=== PATIENT | female | born 1990 | race Two or more races ===

== ENCOUNTER 2017-12-14 21:36 | Emergency (ER) | payer BC ==
[2017-12-14] MEDS ORDERED: Metoclopramide 10 MG/2 ML SDV IVPUSH ONE (22:43)
[2017-12-14] MEDS ORDERED: HYDROmorphone 1 MG/ML Syringe IVPUSH ONE (22:43)
[2017-12-14] MEDS ORDERED: Sodium Chloride 0.9% 1,000 ML IV SCH (22:45)
--- NOTE | 2017-12-14 22:46 | EDM.PDOC ---
ED HPI GENERAL MEDICAL PROBLEM - General Chief Complaint: Abdominal Pain Stated Complaint: ABDOMINAL PAIN Time Seen by Provider: 12/14/17 22:37 Source of Information: Reports: Patient History Limitations: Reports: No Limitations - History of Present Illness INITIAL COMMENTS - FREE TEXT/NARRATIVE: 27-year-old female presents to the ED with acute onset of upper abdominal pain. She feels it mostly epigastrium then shoots across both sides were upper abdomen. Reports this is an intermittent chronic problem for her for many months. It was worse during recent 12 week . Patient took misoprostol to complete miscarriage as she had incomplete products of conception. She had a 8 week gestation fetus on ultrasound without any heartbeat. She took the misoprostol on Friday, December 10 and miscarried the following morning. This did produce significant abdominal cramping pain and diarrhea. Patient does have some dyspepsia by history. Does not take medication for reflux or heartburn. H this gas pain seems to start almost every evening. Usually her supper meals and her largest of the day. She rarely drinks alcohol. Pain is constant with mild colicky component. She's aware of in her upper back but not near as bad as the anterior upper abdomen. She does feel bloated. No previous abdominal surgeries. She reports that her bleeding per vagina is mild at this time with very little cramping pain in the lower abdomen. Onset: Today Onset Date: 12/14/17 Onset Time: 21:00 Duration: Chronic, Intermittent, Waxing/Waning Location: Reports: Abdomen Quality: Reports: Ache (Diffuse pain upper abdomen starting in the epigastrium and rating across both sides of the upper abdomen.), Other Severity: Moderate (Ladarius pressure discomfort with a colicky component) Improves with: Reports: None (No position helps it's perhaps worse with lying down.) Worsens with: Reports: Other Context: Denies: Activity, Exercise (Supine position), Lifting, Sick Contact, Trauma, Other Associated Symptoms: Denies: Confusion, Chest Pain, Cough, cough w sputum, Diaphoresis, Fever/Chills, Loss of Appetite, Malaise, Nausea/Vomiting Treatments ASSISTED LIVING DIRECTOR: Reports: Other (see below) (Gas-X.) Upper Abdominal Pain Score (Numeric/FACES): 10 - Related Data Allergies Allergy/AdvReac Type Severity Reaction Status Date / Time No Known Allergies Allergy Verified 12/14/17 21:48 Home Meds: Home Meds . [No Known Home Meds] 12/14/17 [History] Past Medical History SNUBBER History: Reports: , Spontaneous : 1 Para: 0 (Miscarried 4 days ago. Incomplete miscarriage and required misoprostol to facilitate miscarriage on January 10. Found to be 8 weeks gestation with no heart tones on January 08.) LMP (Approximate): > 3 Months Musculoskeletal History: Reports: Fracture, Other (See Below) Other Musculoskeletal History: ankle surgery Social & Family History - Tobacco Use Smoking Status *Q: Never Smoker - Caffeine Use Caffeine Use: Reports: None - Recreational Drug Use Recreational Drug Use: No - Living Situation & Occupation Living situation: Reports: Occupation: Employed ED ROS GENERAL - Review of Systems Review Of Systems: See Below Constitutional: Denies: Fever, Chills HEENT: Reports: No Symptoms Respiratory: Reports: No Symptoms Cardiovascular: Reports: No Symptoms Endocrine: Reports: Fatigue GI/Abdominal: Reports: Abdominal Pain, Decreased Appetite (See history present illness). Denies: Difficulty Swallowing, Distension, Flatus, Hematemesis, Hematochezia, Melena : Reports: Other (Currently mild bleeding per vagina. Miscarrying with the aid of misoprostol on January 09 with miscarriage the following morning January 10) Skin: Reports: No Symptoms Neurological: Reports: No Symptoms Psychiatric: Reports: No Symptoms Hematologic/Lymphatic: Reports: No Symptoms Immunologic: Reports: No Symptoms ED EXAM, GI/ABD - Physical Exam Exam: See Below Exam Limited By: No Limitations General Appearance: Alert, WD/WN, Moderate Distress Eyes: Bilateral: Normal Appearance (No jaundice.) Throat/Mouth: Normal Inspection, Normal Lips, Normal Teeth, Normal Oropharynx Head: Atraumatic, Normocephalic Neck: Normal Inspection, Supple, Full Range of Motion. No: Lymphadenopathy (L) , Lymphadenopathy (R) Respiratory/Chest: No Respiratory Distress, Lungs Clear, Normal Breath Sounds, No Accessory Muscle Use Cardiovascular: Normal Peripheral Pulses, Regular Rate, Rhythm, No Edema, No Gallop, No Murmur GI/Abdominal Exam: Normal Bowel Sounds, Soft, Tender, Other (Negative Shore sign.). No: Guarding, Rigid (Tenderness mostly in the epigastrium with no rebound or guarding), Rebound Back Exam: Normal Inspection, Full Range of Motion. No: CVA Tenderness (L), CVA Tenderness (R) Extremities: Normal Inspection, Normal Range of Motion, Non-Tender, No Pedal Edema Neurological: Alert, Oriented, CN II-XII Intact, Normal Cognition, Normal Gait Psychiatric: Normal Affect, Normal Mood Skin Exam: Warm, Dry, Intact, Normal Color, No Rash Course - Vital Signs Last Recorded V/S: Last Vital Signs Temp 36.4 C 12/14/17 21:45 Pulse 74 12/14/17 21:45 Resp 18 12/14/17 21:45 BP 138/84 12/14/17 21:45 Pulse Ox 100 12/14/17 21:45 - Orders/Labs/Meds Orders: Active Orders 24 hr Category Date Time Status Abdomen 1V Flat [CR] Stat Exams 12/14/17 22:44 Taken Magnesium Citrate [Citrate of Magnesia] Med 12/15/17 00:25 Once 296 ml PO ONETIME ONE Sodium Chloride 0.9% [Normal Saline] 1,000 ml Med 12/14/17 22:45 Active IV ASDIRECTED Medication Orders Sodium Chloride (Normal Saline) 1,000 mls @ 150 mls/hr IV ASDIRECTED DAVY Last Admin: 12/14/17 22:58 Dose: 150 mls/hr Labs: Laboratory Tests 12/14/17 12/14/17 12/14/17 Range/Units 22:50 22:50 22:50 WBC (3.98-10.04) K/mm3 RBC (3.98-5.22) M/mm3 Hgb (11.2-15.7) gm/L Hct (34.1-44.9) % MCV (79.4-94.8) fl MCH (25.6-32.2) pg MCHC (32.2-35.5) g/dl RDW Std Deviation (36.4-46.3) fL Plt Count (182-369) K/mm3 MPV (9.4-12.3) fl Neutrophils % (Manual) (40-60) % Band Neutrophils % (0-10) % Lymphocytes % (Manual) (20-40) % Atypical Lymphs % % Monocytes % (Manual) (2-10) % Eosinophils % (Manual) (0.7-5.8) % Basophils % (Manual) (0.1-1.2) Platelet Estimate RBC Morph Comment Sodium 138 (136-145) mEq/L Potassium 3.7 (3.5-5.1) mEq/L Chloride 102 (98-107) mEq/L Carbon Dioxide 26 (21-32) mEq/L Anion Gap 13.7 (5-15) BUN 11 (7-18) mg/dL Creatinine 0.8 (0.55-1.02) mg/dL Est Cr Clr Drug Dosing 90.41 mL/min Estimated GFR (MDRD) > 60 (>60) mL/min BUN/Creatinine Ratio 13.8 L (14-18) Glucose 106 (74-106) mg/dL Calcium 9.4 (8.5-10.1) mg/dL Total Bilirubin 0.2 (0.2-1.0) mg/dL AST 25 (15-37) U/L ALT 28 (14-59) U/L Alkaline Phosphatase 81 (46-116) U/L C-Reactive Protein 0.5 (<1.0) mg/dL Total Protein 8.3 H (6.4-8.2) g/dl Albumin 4.0 (3.4-5.0) g/dl Globulin 4.3 gm/dL Albumin/Globulin Ratio 0.9 L (1-2) Amylase 54 (25-115) U/L Urine Color Yellow (Yellow) Urine Appearance Slt cloudy H (Clear) Urine pH 7.0 (5.0-8.0) Ur Specific [place] > or = 1.030 (1.005-1.030) Urine Protein Negative (Negative) Urine Glucose (UA) Negative (Negative) Urine Ketones Negative (Negative) Urine Occult Blood 3+ H (Negative) Urine Nitrite Negative (Negative) Urine Bilirubin Negative (Negative) Urine Urobilinogen 0.2 (0.2-1.0) Ur Leukocyte Esterase Trace H (Negative) Urine RBC 40-50 H (0-5) /hpf Urine WBC 0-5 (0-5) /hpf Ur Epithelial Cells 0-5 (0-5) /hpf Urine Bacteria Few (FEW) /hpf Urine Mucus Few (FEW) /hpf H. pylori IgG Antibody Negative (NEGATIVE) 12/14/17 Range/Units 23:05 WBC 11.86 H (3.98-10.04) K/mm3 RBC 4.00 (3.98-5.22) M/mm3 Hgb 12.0 (11.2-15.7) gm/L Hct 35.1 (34.1-44.9) % MCV 87.8 (79.4-94.8) fl MCH 30.0 (25.6-32.2) pg MCHC 34.2 (32.2-35.5) g/dl RDW Std Deviation 38.5 (36.4-46.3) fL Plt Count 313 (182-369) K/mm3 MPV 9.9 (9.4-12.3) fl Neutrophils % (Manual) 65 H (40-60) % Band Neutrophils % 0 (0-10) % Lymphocytes % (Manual) 25 (20-40) % Atypical Lymphs % 0 % Monocytes % (Manual) 9 (2-10) % Eosinophils % (Manual) 1 (0.7-5.8) % Basophils % (Manual) 0 L (0.1-1.2) Platelet Estimate Adequate RBC Morph Comment Normal Sodium (136-145) mEq/L Potassium (3.5-5.1) mEq/L Chloride (98-107) mEq/L Carbon Dioxide (21-32) mEq/L Anion Gap (5-15) BUN (7-18) mg/dL Creatinine (0.55-1.02) mg/dL Est Cr Clr Drug Dosing mL/min Estimated GFR (MDRD) (>60) mL/min BUN/Creatinine Ratio (14-18) Glucose (74-106) mg/dL Calcium (8.5-10.1) mg/dL Total Bilirubin (0.2-1.0) mg/dL AST (15-37) U/L ALT (14-59) U/L Alkaline Phosphatase (46-116) U/L C-Reactive Protein (<1.0) mg/dL Total Protein (6.4-8.2) g/dl Albumin (3.4-5.0) g/dl Globulin gm/dL Albumin/Globulin Ratio (1-2) Amylase (25-115) U/L Urine Color (Yellow) Urine Appearance (Clear) Urine pH (5.0-8.0) Ur Specific [place] (1.005-1.030) Urine Protein (Negative) Urine Glucose (UA) (Negative) Urine Ketones (Negative) Urine Occult Blood (Negative) Urine Nitrite (Negative) Urine Bilirubin (Negative) Urine Urobilinogen (0.2-1.0) Ur Leukocyte Esterase (Negative) Urine RBC (0-5) /hpf Urine WBC (0-5) /hpf Ur Epithelial Cells (0-5) /hpf Urine Bacteria (FEW) /hpf Urine Mucus (FEW) /hpf H. pylori IgG Antibody (NEGATIVE) Meds: Medications Generic Name Dose Route Start Last Admin Trade Name Freq PRN Reason Stop Dose Admin Sodium Chloride 1,000 mls @ 150 mls/hr 12/14/17 22:45 12/14/17 22:58 Normal Saline IV 150 mls/hr ASDIRECTED DAVY Administration Discontinued Medications Generic Name Dose Route Start Last Admin Trade Name Freq PRN Reason Stop Dose Admin Dicyclomine HCl 20 mg 12/15/17 00:24 Bentyl PO 12/15/17 00:25 ONETIME ONE Hydromorphone HCl 1 mg 12/14/17 22:43 12/14/17 22:59 Dilaudid IVPUSH 12/14/17 22:44 1 mg ONETIME ONE Administration Hydromorphone HCl 1 mg 12/15/17 00:25 Dilaudid IVPUSH 12/15/17 00:26 ONETIME ONE Metoclopramide HCl 7.5 mg 12/14/17 22:43 12/14/17 22:58 Reglan IVPUSH 12/14/17 22:44 7.5 mg ONETIME ONE Administration - Radiology Interpretation Free Text/Narrative:: 27-year-old female presents to the ED with diffuse upper abdominal pain since 2100 hrs. tonight. She reports this is a chronic condition that occurs most often the evenings. She feels like she is bloated up with excessive gas. Pain tonight is the worst it's been. Associated nausea without vomiting. Pain into her back. Pain in the epigastrium that radiates across both upper sides of the abdomen. He does feel bloated and distended. On exam she is diffusely tympanitic to percussion and is clinically distended. Bowel sounds are fairly active but not overly so. Benign abdomen on palpation. Most of the tenderness appears to be in the epigastrium. Negative Shore sign. Most likely thing is constipation of the transverse colon. Plan IV normal saline 150 mils per hour. Given Dilaudid 1 mg IV and Reglan 7.5 mg IV for pain relief and nausea relief. Labs including amylase and Helicobacter pylori to be done. KUB of the abdomen to be done. - Re-Assessments/Exams Free Text/Narrative Re-Assessment/Exam: 12/15/17 00:17 KUB reveals increased stool throughout the lower right hemicolon almost to the hepatic flexure. Large amount of air distending the transverse colon. Labs are back. Labs are back revealing a mildly elevated white count of 11.86 with 65% neutrophils and no band cells reported. Hemoglobin is 12.0 with hematocrit of 35.1. White count is normal 313,000. Chemistry is normal. Glucose is 106. Calcium is 9.4. Liver function is normal. Total protein is mildly elevated at 8.3 with a albumin fraction of 4.0. Urinalysis shows 3+ occult blood with 40-50 RBCs per high-power field. Trace leukocyte esterase. H. pylori was negative. 12/15/17 00:26 pain was better but the cramps return to come back. Patient advised of the findings of the labs and x-ray. Plan will be to use magnesium citrate 8 ounces by mouth with 5-6 ounces of juice of choice orally later this morning when she wakes up to get her bowels working. Will repeat Dilaudid 1 mg IV and give her Bentyl 20 mg by mouth at this time to relieve abdominal cramping pain. I'm going to suggest that she takes MiraLAX powder 17 g or 1 scoop daily for the next 3 weeks with a probiotic such as 4*to prevent similar events as this is been a chronic problem for her. Departure - Departure Time of Disposition: 00:27 Disposition: Home, Self-Care 01 Condition: Fair Clinical Impression: Constipation by delayed colonic transit Abdominal pain Qualifiers: Abdominal location: periumbilical Qualified Code(s): R10.33 - Periumbilical pain - Discharge Information *PRESCRIPTION DRUG MONITORING PROGRAM REVIEWED*: No *COPY OF PRESCRIPTION DRUG MONITORING REPORT IN PATIENT RAMYA: No Instructions: Constipation, Adult Referrals: PCP,None [Primary Care Provider] - Forms: ED Department Discharge Additional Instructions: Evaluation in the emergency room tonight in regards to development of severe upper abdominal cramping pain. This is been a recurrent problem for you and therefore you underwent significant investigations with lab tests. No signs of H. pylori infection to cause gastritis or peptic ulcer disease. No evidence of liver or gallbladder related illness. Pancreas is also normal. The x-ray of the abdomen revealed constipation involving the right lower hemicolon. It's means there is a stool plug in the bottom of your right colon where the small bowel attaches. This is unusual in terms that stool is usually not formed up in the right colon but only on the left side. It does form up on the left side it creates a stool plug which will create intermittent severe cramping pain when you eat particularly. It is magnesium citrate later this morning. Take 8 ounces with 5-6 ounces of juice of choice or Gatorade Powerade or a mixed with it. Takes 1-2 hours to work and will usually make her bowels work for 3 or 4 times often ending with some diarrhea. Should relieve your abdominal pain. I would suggest taking MiraLAX powder 17 g or 1 scoop daily for the next 3 weeks to help regulate her bowels and also a probiotic such as Florstar once or twice daily to try and help prevent constipation issues as well. You're treated with intravenous medication Dilaudid 1 mg IV 2 while in the ED for relief of abdominal pain. Also Reglan 7.5 mg for nausea relief. You're also given Bentyl 20 mg by mouth to help relieve cramping abdominal pain overnight. Follow-up with personal care physician if similar problems continue. - My Orders Last 24 Hours: My Active Orders 12/14/17 22:44 Abdomen 1V Flat [CR] Stat 12/14/17 22:45 Sodium Chloride 0.9% [Normal Saline] 1,000 ml IV ASDIRECTED 12/15/17 00:25 Magnesium Citrate [Citrate of Magnesia] 296 ml PO ONETIME ONE - Assessment/Plan Last 24 Hours: My Active Orders 12/14/17 22:44 Abdomen 1V Flat [CR] Stat 12/14/17 22:45 Sodium Chloride 0.9% [Normal Saline] 1,000 ml IV ASDIRECTED 12/15/17 00:25 Magnesium Citrate [Citrate of Magnesia] 296 ml PO ONETIME ONE
[2017-12-15] MEDS ORDERED: Dicyclomine 10 MG Cap PO ONE (00:24)
[2017-12-15] MEDS ORDERED: Magnesium Citrate Solution 296 ML Bottle PO ONE (00:25)
[2017-12-15] MEDS ORDERED: HYDROmorphone 1 MG/ML Syringe IVPUSH ONE (00:25)
--- NOTE | 2017-12-15 11:47 | CR ---
Abdomen: Supine view of the abdomen was obtained. Comparison: No previous study. Bowel gas pattern appears normal. No abnormal calcifications or soft tissue abnormality is seen. Bony structures are unremarkable. Impression: 1. Unremarkable supine abdominal x-ray. Diagnostic code #1
== END 2017-12-15 00:58 | disposition home or self-care (01) ==
LOC: JD.ED 21:36
DX: K59.01 Slow transit constipation (principal)
CPT/HCPCS: 36415; 74018; 80053; 81001; 82150; 85007; 85027; 86140; 86677; 96361; 96374; 96375; 96376; 99284; A9270; J1170; J2765; J7040

== ENCOUNTER 2017-12-18 07:47 | Observation (INO) | payer BC ==
[~2017-12-18 07:47] MED LIST: Dexamethasone 4 MG/ML SDV ONE; Ketorolac 30 MG/ML SDV ONE; Lactated Ringers 1,000 ML ONE; Lidocaine 1% 4 ML ONE; Midazolam 1 MG/ML 2 ML SDV ONE; Ondansetron 4 MG/2 ML SDV ONE; Propofol 200 MG/20 ML SDV ONE; Rocuronium 50 MG/5 ML Vial ONE; ceFAZolin 1 GM Vial ONE; fentaNYL 250 MCG/5 ML SDV ONE
[2017-12-18] MEDS: Lactated Ringers 1,000 ML IV SCH ×2 (08:15→15:33)
--- NOTE | 2017-12-18 08:33 | PCM.PREANE ---
Preanesthetic Assessment - Anesthesia/Transfusion/Family Hx Anesthesia History: Prior Anesthesia Without Reaction Family History of Anesthesia Reaction: No Transfusion History: No Prior Transfusion(s) Intubation History: Unknown - Review of Systems General: No Symptoms, Fatigue Pulmonary: No Symptoms Cardiovascular: No Symptoms Gastrointestinal: No Symptoms, Decreased Appetite Neurological: No Symptoms Other: Reports: None (Patient recently miscarried approximately one week ago.) - Physical Assessment NPO Status Date: 12/17/17 NPO Status Time: 20:00 Pulse: 100 O2 Sat by Pulse Oximetry: 97 Respiratory Rate: 18 Blood Pressure: 125/82 Temperature: 37.4 C Vital Signs: Last Vital Signs Temp 37.4 C 12/18/17 07:50 Pulse 100 12/18/17 07:50 Resp 18 12/18/17 07:50 BP 125/82 12/18/17 07:50 Pulse Ox 97 12/18/17 07:50 Height: 1.63 m Weight: 80 kg ASA Class: 2 () Mental Status: Alert & Oriented x3 Airway Class: Mallampati = 2 Dentition: Reports: Normal Dentition, Caries Thyro-Mental Finger Breadths: 3 Mouth Opening Finger Breadths: 3 ROM/Head Extension: Full Lungs: Clear to Auscultation, Normal Respiratory Effort Cardiovascular: Regular Rate, Regular Rhythm, No Murmurs - Lab Values: Labs reviewed and noted and within acceptable ranges to proceed with scheduled procedure. Recent miscarriage one week ago therefore no recent HCG performed. - Allergies Allergies/Adverse Reactions: Allergies Allergy/AdvReac Type Severity Reaction Status Date / Time No Known Allergies Allergy Verified 12/18/17 08:37 - Anesthesia Plan Pre-Op Medication Ordered: None - Acknowledgements Anesthesia Type Planned: General Anesthesia Pt an Appropriate Candidate for the Planned Anesthesia: Yes Alternatives and Risks of Anesthesia Discussed w Pt/Guardian: Yes Pt/Guardian Understands and Agrees with Anesthesia Plan: Yes PreAnesthesia Questionnaire HEENT History: Reports: None Cardiovascular History: Reports: None Respiratory History: Reports: None Gastrointestinal History: Reports: Other (See Below) Other Gastrointestinal History: Abdominal pain, lactose intolerant Genitourinary History: Reports: None 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: Spontaneous , Other (See Below) Other OB/BYN History: HPV Musculoskeletal History: Reports: Other (See Below) Other Musculoskeletal History: Right ankle fracture Neurological History: Reports: None Psychiatric History: Reports: None Endocrine/Metabolic History: Reports: Obesity/BMI 30+ Hematologic History: Reports: None Immunologic History: Reports: None Oncologic (Cancer) History: Reports: None Dermatologic History: Reports: None - Infectious Disease History Infectious Disease History: Reports: None - Past Surgical History Head Surgeries/Procedures: Reports: None HEENT Surgical History: Reports: Other (See Below) Other HEENT Surgeries/Procedures: [place] teeth extraction Cardiovascular Surgical History: Reports: None Respiratory Surgical History: Reports: None GI Surgical History: Reports: None Female Surgical History: Reports: None Endocrine Surgical History: Reports: None Neurological Surgical History: Reports: None Musculoskeletal Surgical History: Reports: ORIF Other Musculoskeletal Surgeries/Procedures:: ORIF Right fibula fracture Oncologic Surgical History: Reports: None Dermatological Surgical History: Reports: None - SUBSTANCE USE Smoking Status *Q: Never Smoker Second Hand Smoke Exposure: No Recreational Drug Use History: No - HOME MEDS Home Medications: Home Meds L.acidoph,Paracasei, B.lactis [Probiotic] 1 cap PO DAILY 12/17/17 [History] traMADol [Ultram] 50 mg PO Q8H PRN 12/17/17 [History] - CURRENT (IN HOUSE) MEDS Current Meds: Current Medications Discontinued Medications Cefazolin Sodium (Ancef) Confirm Administered Dose 2 gm .ROUTE .STK-MED ONE Stop: 12/18/17 07:18 Dexamethasone (Dexamethasone) Confirm Administered Dose 4 mg .ROUTE .STK-MED ONE Stop: 12/18/17 07:18 Fentanyl (Sublimaze) Confirm Administered Dose 250 mcg .ROUTE .STK-MED ONE Stop: 12/18/17 07:18 Lactated Ringer's (Ringers, Lactated) Confirm Administered Dose 1,000 mls @ as directed .ROUTE .STK-MED ONE Stop: 12/18/17 07:18 Lidocaine HCl (Xylocaine-Mpf 1%) Confirm Administered Dose 4 mls @ as directed .ROUTE .STK-MED ONE Stop: 12/18/17 07:18 Ketorolac Tromethamine (Toradol) Confirm Administered Dose 30 mg .ROUTE .STK- MED ONE Stop: 12/18/17 07:18 Midazolam HCl (Versed 1 Mg/Ml) Confirm Administered Dose 2 mg .ROUTE .STK-MED ONE Stop: 12/18/17 07:18 Ondansetron HCl (Zofran) Confirm Administered Dose 4 mg .ROUTE .STK-MED ONE Stop: 12/18/17 07:18 Propofol (Diprivan 20 Ml) Confirm Administered Dose 400 mg .ROUTE .STK-MED ONE Stop: 12/18/17 07:18 Rocuronium [place] (Zemuron) Confirm Administered Dose 50 mg .ROUTE .STK-MED ONE Stop: 12/18/17 07:18
[2017-12-18] MEDS ORDERED: Lidocaine 1%/Sod Bicarbonate in NS 8.4% 1 ML Syringe IDERM ONE (08:39)
[2017-12-18] MEDS ORDERED: Sodium Chloride 0.9% 10 ML Syringe FLUSH PRN (08:41)
[2017-12-18] MEDS ORDERED: Bupivacaine 0.5% 30 ML SDV ONE (08:48)
[2017-12-18] MEDS ORDERED: Iopamidol 612 MG/ML 50 ML SDV ONE (08:48)
[2017-12-18] MEDS ORDERED: Sodium Chloride 0.9% 50 ML SDV ONE (08:49)
[2017-12-18] MEDS ORDERED: Piperacillin/Tazobactam 4.5 GM in Sodium Chloride 0.9% 100 ML IV ONE (08:51)
[2017-12-18] MEDS ORDERED: HYDROmorphone 0.5 MG/0.5 ML Syringe ONE ×2 (09:52)
[2017-12-18] MEDS ORDERED: Lactated Ringers 1,000 ML ONE ×2 (10:23→11:29)
[2017-12-18] MEDS ORDERED: fentaNYL 100 MCG/2 ML SDV ONE ×2 (10:23→11:18)
--- NOTE | 2017-12-18 11:34 | PCM.OPNOTE ---
- General Post-Op/Procedure Note Date of Surgery/Procedure: 12/18/17 Operative Procedure(s): lap mayelin with IOC Pre Op Diagnosis: cholelithiasis/acute cholecystitis Post-Op Diagnosis: Same Anesthesia Technique: MAC Primary Surgeon: Jay Page EBL in mLs: 25 Complications: None Condition: Good
[2017-12-18] MEDS ORDERED: HYDROmorphone 0.5 MG/0.5 ML Syringe IVPUSH PRN ×2 (11:36→11:42)
[2017-12-18] MEDS ORDERED: Ondansetron 4 MG/2 ML SDV IVPUSH PRN (11:40)
[2017-12-18] MEDS ORDERED: fentaNYL 100 MCG/2 ML SDV IVPUSH PRN (11:42)
--- NOTE | 2017-12-18 11:44 | PCM.POSTAN ---
POST ANESTHESIA ASSESSMENT - MENTAL STATUS Mental Status: Somnolent - VITAL SIGNS Pulse Rate: 93 SaO2: 96 Resp Rate: 15 Blood Pressure: 119/70 Temperature: 36.9 C - RESPIRATORY Respiratory Status: Respiratory Rate WNL, Airway Patent, O2 Saturation Stable, Supplemental Oxygen - CARDIOVASCULAR CV Status: Pulse Rate WNL, Blood Pressure Stable - GASTROINTESTINAL GI Status: No Symptoms - PAIN Pain Score: 0 - POST OP HYDRATION Hydration Status: Adequate & Stable - OBSERVATIONS Free Text/Narrative:: no anesthesia complications noted
--- NOTE | 2017-12-18 14:16 | CR ---
Operative cholangiogram Technique: Three fluoroscopic spot views were obtained during operative cholangiogram study. Findings: Opacification of the CHD and CBD as well as main intrahepatic ducts are seen. No filling defects are seen to indicate retained stone. Contrast noted within the duodenum. Fluoroscopy time given as 32.0 seconds. Impression: 1. Unremarkable operative cholangiogram exam. Diagnostic code #1
[2017-12-18] MEDS: Piperacillin/Tazobactam 4.5 GM in Sodium Chloride 0.9% 100 ML IV SCH (16:37)
[2017-12-18] MEDS: Acetaminophen/HYDROcodone 325-5 MG Tab PO PRN (19:41)
[2017-12-18] MEDS: Ketorolac 30 MG/ML SDV IVPUSH PRN (22:24)
[2017-12-19] MEDS: Piperacillin/Tazobactam 4.5 GM in Sodium Chloride 0.9% 100 ML IV SCH ×2 (01:55→09:25)
[2017-12-19] MEDS: Acetaminophen/HYDROcodone 325-5 MG Tab PO PRN ×2 (06:06→14:12)
--- NOTE | 2017-12-19 09:18 | OR ---
DATE OF OPERATION: 12/18/2017 SURGEON: Jay Page MD PREOPERATIVE DIAGNOSIS: Cholecystitis, cholelithiasis. POSTOPERATIVE DIAGNOSIS: Cholecystitis, cholelithiasis. OPERATION PERFORMED: Laparoscopic cholecystectomy, intraoperative cholangiogram. FINDINGS: Normal intraoperative cholangiogram. The gallbladder was grossly thickened and edematous with complete wrapping of the fundus with the omentum. ESTIMATED BLOOD LOSS: About 25 mL. ANESTHESIA: Procedure done under general anesthetic. DESCRIPTION OF PROCEDURE: The patient was taken to the operating room, placed in the supine position, given a general anesthetic, and intubated. Antibiotics were given, SCDs were placed, and the abdomen was prepped with chlorhexidine alcohol, prepped and draped off in a sterile fashion. An incision was made just below the umbilicus after injection of the skin with 0.5% Marcaine and a 5-mm Opti-Port was used to enter the abdominal cavity. A 5 mm 0 degree camera was then inserted and the abdominal cavity was scanned showing complete wrapping of the fundus of the gallbladder with the omentum. A 10 mm trocar was placed in the epigastric position, a 5 mm trocar was placed in right upper quadrant, 1 in the right lateral quadrant, and the patient was placed in reverse Trendelenburg leftward tilt. The gallbladder was then aspirated and then the fundus of the gallbladder was grasped and retracted in a cephalad position. The omentum was then taken down by blunt and electrocautery and then the Ekta pouch was then identified. At this time, the camera was changed to a 30-degree camera and the Ekta pouch-cystic duct junction was then identified. The cystic duct was then dissected out along with what was felt to be the cystic artery as it ramified onto the gallbladder with the cystic plate. The cystic artery was secured with 2 clips, the cystic duct with 1 clip distal, and the cystic duct opened and milked, some stones were removed, and then a cholangiocatheter was placed and the catheter was secured with a clip. Cholangiogram was then obtained using contrast material diluted with equal parts of saline and the C- arm. This showed a normal study. The cholangiocatheter was then removed and the cystic duct cut, a clip was placed, and then it was further secured with a 0 PDS Endoloop. The cystic artery was then cut and the gallbladder was then dissected from its attachments to the liver and placed in an Endobag and removed from the abdominal cavity by enlarging the epigastric port. The camera was reinserted, and the area was irrigated. Excellent hemostasis noted. This completed the intraabdominal portion of the procedure. The epigastric port was then closed in 2 layers, posterior fascia and anterior fascia with running 0 Vicryl suture. The skin was then closed with subdermal 4-0 Dexon sutures and Steri-Strips of each port and 0.5% Marcaine infiltrated in the remaining ports. The patient tolerated the procedure and sent to recovery room in a stable condition. SHAR /[id number]
[2017-12-19] MEDS: Ketorolac 30 MG/ML SDV IVPUSH PRN (09:36)
--- NOTE | 2017-12-20 00:31 | DISCH ---
ADMISSION DATE: 12/18/2017 DISCHARGE DATE: 12/19/2017 HISTORY: This is a 27-year-old, who presented yesterday to the clinic with a 4-day history of abdominal pain, right upper quadrant tenderness. She was initially seen in the emergency room, which was pain felt to be due to constipation, and was given laxatives. She followed up her nurse practitioner where an ultrasound showed the gallbladder with edema and stones. She had had intermittent episodes of pain in the abdomen, felt to be due to constipation over the last couple of years. The patient otherwise 4 days ago had had also a spontaneous overseen by Dr. Miller and was stable. The patient's past medical history otherwise was of good health. PHYSICAL EXAMINATION: GENERAL: At time of admission showed alert and cooperative female. EYES, EARS, NOSE, AND THROAT: Unremarkable. NECK: Supple. LUNGS: Clear. HEART: Tones are regular rate. ABDOMEN: Showed tenderness to right upper quadrant. LABORATORY DATA: Showed white count elevated above 11,000 and liver enzymes, bilirubin were normal. Abnormal ultrasound showing edema of the gallbladder wall. HOSPITAL COURSE: The patient was initially seen in the clinic on Friday and scheduled for surgery. She underwent laparoscopic cholecystectomy where an inflamed, edematous gallbladder with a complete wrapping of the fundus of the omentum was found. Intraoperative cholangiogram was done which was normal and laparoscopic cholecystectomy done. Because of the intense inflammation, she was placed in the observation in the hospital for antibiotics. She did well that evening and SCDs were placed for any prophylaxis for deep vein thrombosis. She was given pain medications and Zosyn for antibiotics. She improved and was eating a regular diet, ambulating, and at the time of the following day her vital signs were stable, and she had felt to reach maximum hospital benefit. Wounds were healing without problem. It was felt she would be able to be discharged. FINAL DIAGNOSIS: She was discharged with diagnoses of acute cholecystitis, cholelithiasis, status post laparoscopic cholecystectomy, FIOC. CONDITION ON DISCHARGE: Improved. FOLLOW-UP: Plan is to follow up in the clinic in a week. DISCHARGE MEDICATIONS: Will be amoxicillin 500 mg q.i.d. for 4 days and Keyser 5/325 for pain 4 times a day. ACTIVITY: Instructed in activities, may shower. DIET: Regular diet. MMODAL /[id number]
== END 2017-12-19 14:25 | disposition home or self-care (01) ==
LOC: JD.SDS 07:47 → JD.MS 11:35
PROVIDERS: ADMIT Surgery; ATTEND Surgery
DX: K80.10 Calculus of gallbladder with chronic cholecystitis without obstruction (principal); K82.8 Other specified diseases of gallbladder; E66.9 Obesity, unspecified; Z68.31 Body mass index [BMI] 31.0-31.9, adult
CPT/HCPCS: 47563; 74300; A9270; G0378; J1100; J1170; J1885; J2250; J2405; J2543; J2704; J3010; J3490; J7030; J7120; Q9967; 00790; J0690; J2001

== ENCOUNTER 2018-12-27 10:16 | Inpatient (IN) | payer BC ==
[~2018-12-27 10:16] MED LIST changes: +Bupivacaine 0.25% 10 ML SDV ONE; -Dexamethasone 4 MG/ML SDV ONE; -Ketorolac 30 MG/ML SDV ONE; -Lactated Ringers 1,000 ML ONE; -Lidocaine 1% 4 ML ONE; -Midazolam 1 MG/ML 2 ML SDV ONE; -Ondansetron 4 MG/2 ML SDV ONE; -Propofol 200 MG/20 ML SDV ONE; -Rocuronium 50 MG/5 ML Vial ONE; -ceFAZolin 1 GM Vial ONE; -fentaNYL 250 MCG/5 ML SDV ONE
[2018-12-27] MEDS ORDERED: Misoprostol 25 MCG (1/4 of 100 MCG) Tab VAG ONE (17:53)
[2018-12-27] MEDS ORDERED: Nalbuphine 10 MG/1 ML Vial IVPUSH PRN (17:53)
[2018-12-27] MEDS ORDERED: Sodium Chloride 0.9% 10 ML Syringe FLUSH PRN (17:53)
[2018-12-27] MEDS ORDERED: Oxytocin/Lactated Ringers 10 UNIT/1,000 ML BAG IV SCH ×2 (18:00)
[2018-12-27] MEDS ORDERED: FLU Vacc QS2019-20(6MOS+)/PF 60 MCG/0.5 ML SYRINGE IM ONE (19:00)
--- NOTE | 2018-12-27 19:10 | PCM.LDHP ---
<Alvino Harrington Hien - Last Filed: 12/27/18 18:36> L&D History of Present Illness - General Date of Service: 12/27/18 Admit Problem/Dx: Patient Status Order with Admit Dx/Problem 12/27/18 17:53 Patient Status [ADT] Routine Admission Diagnosis/Problem Admission Diagnosis/Problem 12/27/18 18:36 Monty is a 28-year-old 2 para 0010 white female who is scheduled for admission on 12/26/2018 for an induction. AYAH is 01/22/2019 placing the patient at 36 2/7 weeks gestational age upon admission. Source of Information: Patient History Limitations: Reports: No Limitations - History of Present Illness Introduction:: Introduction: Monty is a 28-year-old 2 para 0010 white female at 36 2/7 weeks gestational age with an AYAH of 01/22/2019 who is scheduled for admission on for an induction. The procedure, risks, and benefits of induction of labor were discussed with her in detail. She wishes to proceed with induction. 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 AYAH of 01/22/2019 is based on ultrasound dating X2. LMP was 09/2018. Complications during this include cholestasis, positive fibronectin (FFN) test, and bacterial vaginitis. She is a high risk due to these complications. She is being schedule for induction today due to the cholestasis. Her medical history includes CELINA 1 for which she had two colposcopies. She plans on breast and bottle feeding. She declined genetic testing. Group B strep screen was negative. Her first medical appointment was on 06/29/2018. Early ultrasound was performed on 06/29/2018. During the course of her she gained approximately 15 pounds. Her vital signs remained stable throughout the course and her fundal height growth was appropriate. Laboratory testing in shows her blood type to be B+. First hemoglobin was 13.3g/dL and platelets were at 363,000. She is rubella immune. Hepatitis B surface antigen, HIV assays, chlamydia, and gonorrhea were all negative. RPR was nonreactive. Second trimester labs showed hemoglobin of 12.7 g /dL and platelets of 273,000. Third trimester hemoglobin was 12.5 g/dL and platelets of 258,000. Group B strep was negative. 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: Reports: Spontaneous , Other (See Below) Other OB/BYN History: HPV Musculoskeletal History: Reports: Other (See Below) Other Musculoskeletal History: Right ankle fracture Neurological History: Reports: None Psychiatric History: Reports: None Endocrine/Metabolic History: Reports: Obesity/BMI 30+ Hematologic History: Reports: None Immunologic History: Reports: None Oncologic (Cancer) History: Reports: None Dermatologic History: Reports: None - Infectious Disease History Infectious Disease History: Reports: None - Past Surgical History Head Surgeries/Procedures: Reports: None HEENT Surgical History: Reports: Other (See Below) Other HEENT Surgeries/Procedures: [place] teeth extraction Cardiovascular Surgical History: Reports: None Respiratory Surgical History: Reports: None GI Surgical History: Reports: None Female Surgical History: Reports: None Endocrine Surgical History: Reports: None Neurological Surgical History: Reports: None Musculoskeletal Surgical History: Reports: ORIF Other Musculoskeletal Surgeries/Procedures:: ORIF Right fibula fracture Oncologic Surgical History: Reports: None Dermatological Surgical History: Reports: None Social & Family History - Caffeine Use Caffeine Use: Reports: Coffee - Living Situation & Occupation Living situation: Reports: Occupation: Employed H&P Review of Systems - Review of Systems: General: Reports: No Symptoms Pulmonary: Reports: No Symptoms Cardiovascular: Reports: No Symptoms Gastrointestinal: Reports: No Symptoms (She states that she does have a yellow discoloration of her stool but that it is consitent with her past history. Denies any recent changes. ) Genitourinary: Reports: Frequency, Incontinence. Denies: Dysuria, Pain, Urgency Musculoskeletal: Reports: No Symptoms Skin: Reports: No Symptoms Review of Systems Comment:: In general, Monty is a well developed, well nourish, pleasant female in no acute distress. Last evaluation in clinic was on 12/16/2018. Blood pressure at that time was 110/66. Weight was 196.2. She is 5'4". Her pregravid weight was 181 pounds. Her pregravid BMI was 31.9. L&D Exam - Vital Signs Weight: 91.354 kg - Exam General: Alert, Oriented HEENT: Conjunctiva Clear, EOMI, Hearing Intact, Pupils Equal, Pupils Reactive Neck: Supple, Trachea Midline Lungs: Clear to Auscultation, Normal Respiratory Effort Cardiovascular: Regular Rate, Regular Rhythm, Normal S1, Normal S2 Extremities: Normal Inspection, Normal Range of Motion, Non-Tender, No Pedal Edema, Normal Capillary Refill Skin: Warm, Dry, Intact - Patient Data Lab Results Last 24 hrs: Laboratory Results - last 24 hr 12/27/18 Range/Units 18:14 WBC 13.04 H (3.98-10.04) K/mm3 RBC 3.98 (3.98-5.22) M/mm3 Hgb 12.1 (11.2-15.7) gm/dl Hct 35.1 (34.1-44.9) % MCV 88.2 (79.4-94.8) fl MCH 30.4 (25.6-32.2) pg MCHC 34.5 (32.2-35.5) g/dl RDW Std Deviation 38.1 (36.4-46.3) fL Plt Count 271 (182-369) K/mm3 MPV 10.6 (9.4-12.3) fl Neut % (Auto) 73.6 H (34.0-71.1) % Lymph % (Auto) 15.7 L (19.3-51.7) % Patrick % (Auto) 8.5 (4.7-12.5) % Eos % (Auto) 1.0 (0.7-5.8) Baso % (Auto) 0.2 (0.1-1.2) % Neut # (Auto) 9.60 H (1.56-6.13) K/mm3 Lymph # (Auto) 2.05 (1.18-3.74) K/mm3 Patrick # (Auto) 1.11 H (0.24-0.36) K/mm3 Eos # (Auto) 0.13 (0.04-0.36) K/mm3 Baso # (Auto) 0.02 (0.01-0.08) K/mm3 Result Diagrams: 12/27/18 18:14 Problem List Initiated/Reviewed/Updated: Yes Orders Last 24hrs: Active Orders 24 hr Category Date Time Status Patient Status [ADT] Routine ADT 12/27/18 17:53 Active Activity as Tolerated [RC] PFP Care 12/27/18 17:53 Active Communication Order [RC] ASDIRECTED Care 12/27/18 17:53 Active Heart Tones [RC] ASDIRECTED Care 12/27/18 17:53 Active Non Stress Test [RC] PER UNIT ROUTINE Care 12/27/18 17:53 Active Notify Provider [RC] PFP Care 12/27/18 17:53 Active Notify Provider [RC] PRN Care 12/27/18 17:53 Active Peripheral IV Care [RC] . DIRECTED Care 12/27/18 17:53 Active Vital Signs [RC] PER UNIT ROUTINE Care 12/27/18 17:53 Active Regular Diet [DIET] Diet 12/28/18 Breakfast Active CBC WITH AUTO DIFF [HEME] Stat Lab 12/27/18 18:14 Results COMPREHENSIVE METABOLIC PN,CMP [CHEM] Stat Lab 12/27/18 18:14 Received RAPID PLASMA REAGIN,RPR [CHEM] Routine Lab 12/27/18 18:14 Received UA W/MICROSCOPIC [URIN] Stat Lab 12/27/18 17:53 Ordered URIC ACID [CHEM] Stat Lab 12/27/18 18:14 Received Lactated Ringers [Ringers, Lactated] 1,000 ml Med 12/27/18 18:00 Active IV ASDIRECTED Nalbuphine [Nubain] Med 12/27/18 17:53 Active 10 mg IVPUSH Q2H PRN Oxytocin/Lactated Ringers [Pitocin in LR 10 Units/1,000 Med 12/27/18 18:00 Active ML] 10 unit in 1,000 ml IV .CONTINUOUS Oxytocin/Lactated Ringers [Pitocin in LR 10 Units/1,000 Med 12/27/18 18:00 Active ML] 10 unit in 1,000 ml IV TITRATE Sodium Chloride 0.9% [Saline Flush] Med 12/27/18 17:53 Active 10 ml FLUSH ASDIRECTED PRN Electronic Heart Tones Ext w TOCO [WOMSER] Oth 12/27/18 17:53 Ordered Routine Electronic Heart Tones Internal [WOMSER] Per Unit Ot 12/27/18 17:53 Ordered Routine Peripheral IV Insertion Adult [OM.PC] Routine Oth 12/27/18 17:53 Ordered Resuscitation Status Routine Resus Stat 12/27/18 17:53 Ordered Medication Orders Lactated Ringer's (Ringers, Lactated) 1,000 mls @ 100 mls/hr IV ASDIRECTED DAVY Oxytocin/Lactated Ringer's (Pitocin In Lr 10 Units/1,000 Ml) 10 unit in 1,000 mls @ 12 mls/hr IV TITRATE DAVY; Protocol Oxytocin/Lactated Ringer's (Pitocin In Lr 10 Units/1,000 Ml) 10 unit in 1,000 mls @ 500 mls/hr IV .CONTINUOUS DAVY Nalbuphine HCl (Nubain) 10 mg IVPUSH Q2H PRN PRN Reason: Pain Sodium Chloride (Saline Flush) 10 ml FLUSH ASDIRECTED PRN PRN Reason: Keep Vein Open Assessment/Plan Comment:: Assessment: 1. 36 2/7 weeks gestation. H/O cholestasis, positive FFN test, and bacterial vaginitis. 2. Group B strep screen was negative. 3. Monty wants to try natural delivery but is open to the idea of epidural if needed. 4. Plans to initially breast feed for the benefits but wishes to switch to bottle feeding later. 5. Tdap was last given on 11/05/2018. 6. RPR screen was negative. Plan: 1. Pitocin and Cytotec Induction. 2. Anticipate a normal spontaneous vaginal delivery. 3. Epidural closer to delivery if Monty desires. 4. CBC & RPR to be drawn. 5. Routine labor care. <Celso Vazquez - Last Filed: 12/28/18 05:45> L&D History of Present Illness - General Admit Problem/Dx: Patient Status Order with Admit Dx/Problem 12/27/18 17:53 Patient Status [ADT] Routine Admission Diagnosis/Problem Admission Diagnosis/Problem 12/28/18 05:43 Monty is a 28-year-old 2 para 0010 white female who is scheduled for admission on 12/26/2018 for a medical induction of labor for diagnosis of intrahepatic cholestasis of . Patient is been noted in clinic to have significant internal and external itching/pruritus. Bile acid evaluation and GGT have been elevated consistent with intrahepatic cholestasis of . Her [employer] gynecologists guidelines patient is being induced between 36 and 37 weeks. She has been followed with testing consistent biophysical profiles which have been normal. AYAH is 01/22/2019 placing the patient at 36 2/7 weeks gestational age upon admission. H&P Review of Systems - Review of Systems: Review Of Systems: See Below L&D Exam - Exam Exam: See Below - Vital Signs Vital Signs: Last Vital Signs Temp Pulse 94 12/27/18 17:53 Resp 16 12/27/18 17:53 BP 122/76 12/27/18 17:53 Pulse Ox - Patient Data Lab Results Last 24 hrs: Laboratory Results - last 24 hr 12/27/18 12/27/18 12/27/18 Range/Units 18:14 18:14 19:30 WBC 13.04 H (3.98-10.04) K/mm3 RBC 3.98 (3.98-5.22) M/mm3 Hgb 12.1 (11.2-15.7) gm/dl Hct 35.1 (34.1-44.9) % MCV 88.2 (79.4-94.8) fl MCH 30.4 (25.6-32.2) pg MCHC 34.5 (32.2-35.5) g/dl RDW Std Deviation 38.1 (36.4-46.3) fL Plt Count 271 (182-369) K/mm3 MPV 10.6 (9.4-12.3) fl Neut % (Auto) 73.6 H (34.0-71.1) % Lymph % (Auto) 15.7 L (19.3-51.7) % Patrick % (Auto) 8.5 (4.7-12.5) % Eos % (Auto) 1.0 (0.7-5.8) Baso % (Auto) 0.2 (0.1-1.2) % Neut # (Auto) 9.60 H (1.56-6.13) K/mm3 Lymph # (Auto) 2.05 (1.18-3.74) K/mm3 Patrick # (Auto) 1.11 H (0.24-0.36) K/mm3 Eos # (Auto) 0.13 (0.04-0.36) K/mm3 Baso # (Auto) 0.02 (0.01-0.08) K/mm3 Manual Slide Review Abnormal smear Sodium 136 (136-145) mEq/L Potassium 3.2 L (3.5-5.1) mEq/L Chloride 102 (98-107) mEq/L Carbon Dioxide 22 (21-32) mEq/L Anion Gap 15.2 H (5-15) BUN 5 L (7-18) mg/dL Creatinine 0.6 (0.55-1.02) mg/dL Est Cr Clr Drug Dosing 119.47 mL/min Estimated GFR (MDRD) > 60 (>60) mL/min BUN/Creatinine Ratio 8.3 L (14-18) Glucose 96 (74-106) mg/dL Uric Acid 3.4 (2.6-6.0) mg/dL Calcium 8.9 (8.5-10.1) mg/dL Total Bilirubin 0.2 (0.2-1.0) mg/dL AST 11 L (15-37) U/L ALT 15 (14-59) U/L Alkaline Phosphatase 87 (46-116) U/L Total Protein 6.9 (6.4-8.2) g/dl Albumin 2.8 L (3.4-5.0) g/dl Globulin 4.1 gm/dL Albumin/Globulin Ratio 0.7 L (1-2) Urine Color Yellow (Yellow) Urine Appearance Slt cloudy H (Clear) Urine pH 6.0 (5.0-8.0) Ur Specific [place] 1.025 (1.005-1.030) Urine Protein Negative (Negative) Urine Glucose (UA) Negative (Negative) Urine Ketones Negative (Negative) Urine Occult Blood Negative (Negative) Urine Nitrite Negative (Negative) Urine Bilirubin Negative (Negative) Urine Urobilinogen 0.2 (0.2-1.0) Ur Leukocyte Esterase Negative (Negative) Urine RBC 0-5 (0-5) /hpf Urine WBC 0-5 (0-5) /hpf Ur Squamous Epith Cells 0-5 (0-5) /hpf Amorphous Sediment Few H (NOT SEEN) /hpf Urine Bacteria Few (FEW) /hpf Urine Mucus Moderate H (FEW) /hpf Result Diagrams: 12/27/18 18:14 12/27/18 18:14 Problem List Initiated/Reviewed/Updated: Yes Orders Last 24hrs: Active Orders 24 hr Category Date Time Status Patient Status [ADT] Routine ADT 12/27/18 17:53 Active Activity as Tolerated [RC] PFP Care 12/27/18 17:53 Active Communication Order [RC] ASDIRECTED Care 12/27/18 17:53 Active Heart Tones [RC] ASDIRECTED Care 12/27/18 17:53 Active Non Stress Test [RC] PER UNIT ROUTINE Care 12/27/18 17:53 Active Influenza Vaccine Charge [RC] .DISCHARGE Care 12/27/18 18:46 Active Notify Provider [RC] ASDIRECTED Care 12/27/18 23:31 Active Notify Provider [RC] PFP Care 12/27/18 17:53 Active Notify Provider [RC] PRN Care 12/27/18 17:53 Active Peripheral IV Care [RC] . DIRECTED Care 12/27/18 17:53 Active Vital Signs [RC] PER UNIT ROUTINE Care 12/27/18 17:53 Active Regular Diet [DIET] Diet 12/28/18 Breakfast Active RAPID PLASMA REAGIN,RPR [CHEM] Routine Lab 12/27/18 18:14 Received Bupivicaine/fentaNYL/NS [fentaNYL/Bupivacaine/NS 2 MCG- Med 12/27/18 23:31 Active 0.125% 250 ML] 2 mcg EPIDUR CONTINUOUS PRN Lactated Ringers [Ringers, Lactated] 1,000 ml Med 12/27/18 18:00 Active IV ASDIRECTED Nalbuphine [Nubain] Med 12/27/18 17:53 Active 10 mg IVPUSH Q2H PRN Oxytocin/Lactated Ringers [Pitocin in LR 10 Units/1,000 Med 12/27/18 18:00 Active ML] 10 unit in 1,000 ml IV .CONTINUOUS Oxytocin/Lactated Ringers [Pitocin in LR 10 Units/1,000 Med 12/27/18 18:00 Active ML] 10 unit in 1,000 ml IV TITRATE Sodium Chloride 0.9% [Saline Flush] Med 12/27/18 17:53 Active 10 ml FLUSH ASDIRECTED PRN diphenhydrAMINE [Benadryl] Med 12/27/18 23:31 Active 25 mg IVPUSH Q6H PRN ePHEDrine [ePHEDrine sulfate] Med 12/27/18 23:31 Active 5 mg IVPUSH ASDIRECTED PRN fentaNYL [Sublimaze] Med 12/27/18 23:31 Active 100 mcg EPIDUR Q3H PRN Electronic Heart Tones Ext w TOCO [WOMSER] Oth 12/27/18 17:53 Ordered Routine Electronic Heart Tones Internal [WOMSER] Per Unit Oth 12/27/18 17:53 Ordered Routine Peripheral IV Insertion Adult [OM.PC] Routine Oth 12/27/18 17:53 Ordered Resuscitation Status Routine Resus Stat 12/27/18 17:53 Ordered Medication Orders Diphenhydramine HCl (Benadryl) 25 mg IVPUSH Q6H PRN PRN Reason: pruritis Ephedrine Sulfate (Ephedrine Sulfate) 5 mg IVPUSH ASDIRECTED PRN PRN Reason: Hypotension Fentanyl (Sublimaze) 100 mcg EPIDUR Q3H PRN PRN Reason: Pain Last Admin: 12/28/18 00:00 Dose: 100 mcg Fentanyl/Bupivacaine HCl (Fentanyl/Bupivacaine/Ns 2 Mcg-0.125% 250 Ml) 2 mcg EPIDUR CONTINUOUS PRN PRN Reason: Pain Last Admin: 12/28/18 00:00 Dose: 2 mcg Lactated Ringer's (Ringers, Lactated) 1,000 mls @ 100 mls/hr IV ASDIRECTED DAVY Last Admin: 12/28/18 02:10 Dose: 100 mls/hr Infusion: 12/28/18 02:10 Dose: 100 mls/hr Admin: 12/28/18 00:51 Dose: 100 mls/hr Infusion: 12/28/18 00:51 Dose: 100 mls/hr Admin: 12/27/18 23:55 Dose: 100 mls/hr Oxytocin/Lactated Ringer's (Pitocin In Lr 10 Units/1,000 Ml) 10 unit in 1,000 mls @ 12 mls/hr IV TITRATE DAVY; Protocol Last Titration: 12/28/18 04:22 Dose: 4 munits/min, 24 mls/hr Titration: 10/14/19 03:28 Dose: 3 munits/min, 18 mls/hr Titration: 12/28/18 02:29 Dose: 2 munits/min, 12 mls/hr Admin: 12/28/18 02:00 Dose: 1 munits/min, 6 mls/hr Oxytocin/Lactated Ringer's (Pitocin In Lr 10 Units/1,000 Ml) 10 unit in 1,000 mls @ 500 mls/hr IV .CONTINUOUS DAVY Nalbuphine HCl (Nubain) 10 mg IVPUSH Q2H PRN PRN Reason: Pain Sodium Chloride (Saline Flush) 10 ml FLUSH ASDIRECTED PRN PRN Reason: Keep Vein Open
[2018-12-27] MEDS: Misoprostol 25 MCG (1/4 of 100 MCG) Tab VAG SCH (21:26)
[2018-12-27] MEDS ORDERED: diphenhydrAMINE 50 MG/ML SDV IVPUSH PRN (23:31)
[2018-12-27] MEDS ORDERED: fentaNYL/Bupivacaine in NS PF 2 MCG-0.125% 250 ML Premix EPIDUR PRN (23:31)
[2018-12-27] MEDS ORDERED: fentaNYL 100 MCG/2 ML SDV EPIDUR PRN (23:31)
[2018-12-27] MEDS ORDERED: ePHEDrine 50 MG/ML SDV IVPUSH PRN (23:31)
[2018-12-27] MEDS: Lactated Ringers 1,000 ML IV SCH (23:55)
[2018-12-28] MEDS: Lactated Ringers 1,000 ML IV SCH ×2 (00:51→02:10)
[2018-12-28] MEDS: Misoprostol 25 MCG (1/4 of 100 MCG) Tab VAG SCH (01:30)
[2018-12-28] MEDS ORDERED: Acetaminophen 325 MG Tab PO PRN (13:23)
[2018-12-28] MEDS ORDERED: Docusate Sodium 100 MG Cap PO PRN (13:23)
[2018-12-28] MEDS ORDERED: Benzocaine/Menthol 20%-0.5% Spray 56 GM Canister TOP PRN (13:23)
[2018-12-28] MEDS ORDERED: Witch Hazel Medicated Pads 40/Jar TOP PRN (13:23)
[2018-12-28] MEDS ORDERED: Hydrocortisone Acetate 25 MG Supp RECTAL PRN (13:23)
--- NOTE | 2018-12-28 13:29 | PCM.SN ---
- Free Text/Narrative Note: Delivery note: Monty is a 28-year-old 1 now para 1001 white female who was admitted last evening with a diagnosis of 36-2/7 week intrauterine with complication of intrahepatic cholestasis of . She is admitted for medical induction of labor. She was evaluated clinically and with electronic monitoring which showed reassuring, reactive nonstress test. She is started on cervical ripening therapy with Cytotec initially 25 g per vagina and then 3 hours later 50 g per vagina. With this patient began myah and after the second dose decision was made to proceed with Pitocin induction instead of another dose of Cytotec. At approximately 0500 hrs. on 12/28/2018 patient had artificial rupture membranes. By this time she had had an epidural in place for labor and analgesia. She fairly rapidly progressed to complete cervical dilation by 0916 hrs. She pushed for approximately one hour and delivered a viable, shore, female infant with Apgars of 8 and 9, weight of 2500 g (5 lbs. 8 oz.) and the length of 18.75 inches in a left occiput anterior position. The perineum remained intact and no suturing was necessary. The baby was placed on mom's abdomen. Nose and mouth were bulb suctioned. The cord was allowed to pulsate for approximately 1 minute after which time it was clamped 2 and cut. Baby was taken to the warmer and was assessed. Pitocin was started via the IV at 500 mL/h to facilitate increase in uterine tone and decrease likelihood of bleeding. Estimated blood loss was 100 mL. The umbilical cord was noted to have 3 vessels noted to have an umbilical cord with 3 vessels. The placenta delivered in a Arevalo fashion, appeared intact and complete and was discarded per patient desire. Patient plans to breast- feed. Condition: Good
[2018-12-28] MEDS: Ibuprofen 600 MG Tab PO PRN (20:59)
[2018-12-29] MEDS: Ibuprofen 600 MG Tab PO PRN ×4 (06:11→22:14)
--- NOTE | 2018-12-29 06:27 | PCM48HPAN ---
Post Anesthesia Note - EVALUATION WITHIN 48HRS OF ANESTHETIC Vital Signs in Normal Range: Yes Patient Participated in Evaluation: Yes Respiratory Function Stable: Yes Airway Patent: Yes Cardiovascular Function Stable: Yes Hydration Status Stable: Yes Pain Control Satisfactory: Yes Nausea and Vomiting Control Satisfactory: Yes Mental Status Recovered: Yes Vital Signs: Last Vital Signs Temp 36.4 C 12/28/18 20:12 Pulse 71 12/29/18 04:16 Resp 14 12/29/18 04:16 BP 108/78 12/29/18 04:16 Pulse Ox 98 12/29/18 04:16 - COMMENTS/OBSERVATIONS Free Text/Narrative:: no anesthesia complications noted
--- NOTE | 2018-12-29 08:58 | PCM.SN ---
- Free Text/Narrative Note: Post Progress Note PPD # 1 Subjective: Doing well overall. Reports that her itching has improved significantly following delivery. Only having some itching on her abdomen at this time. Ambulating without difficulty. Lochia minimal. Voiding without difficulty. Tolerating regular diet without nausea or vomiting. Pain controlled with oral medications. Bottlefeeding with minimal difficulty. Objective: Vitals: Vital Signs - 24 hr 12/28/18 12/28/18 12/28/18 12:11 15:38 20:12 Temperature 36.7 C 36.4 C Temperature [ 37.2 C Temporal] Pulse, 76 86 Peripheral Pulse, 77 Peripheral [ Pulse Oximetry] Respiratory 18 16 Rate Blood Pressure 117/73 125/80 Blood Pressure 125/77 [Right Arm] O2 Sat by Pulse 99 96 98 Oximetry 12/29/18 12/29/18 04:16 08:00 Temperature 37.1 C Temperature [ Temporal] Pulse, 71 70 Peripheral Pulse, Peripheral [ Pulse Oximetry] Respiratory 14 16 Rate Blood Pressure 108/78 108/62 Blood Pressure [Right Arm] O2 Sat by Pulse 98 97 Oximetry Physical Exam General: Alert and oriented, no acute distress Lungs: Clear to auscultation bilaterally Heart: Regular rate and rhythm Abdomen: Soft, minimal appropriate tenderness, non-distended, fundus midline, nontender, and at the umbilicus Extremities: Trace edema in bilateral lower extremities to mid shins. No calf tenderness. Laboratory Results - last 24 hr 12/27/18 Range/Units 18:14 RPR Non-reactive (NONREACTIVE) ASSESSMENT: 28-year-old female s/p normal vaginal delivery PPD #1, complicated by intrahepatic cholestasis of , medical induction at 36 weeks due to cholestasis and history of abnormal Pap smear PLAN: Doing well Bottlefeeding with minimal difficulty. Assist as needed Lochia minimal. Continue to monitor for appropriate lochia. Continue routine care Continue to monitor patient's itching and treat as needed. Anticipate discharge home tomorrow Ashvin Garcia MD 8:57 AM 12/29/2018
[2018-12-29] MEDS: Prenatal Multivitamin with Calcium/Folic Acid/Iron Tab PO SCH (09:29)
[2018-12-29] MEDS ORDERED: FLU Vacc QS2019-20(6MOS+)/PF 60 MCG/0.5 ML SYRINGE IM ONE (17:30)
--- NOTE | 2018-12-30 08:11 | PCM.SN ---
- Free Text/Narrative Note: Post Progress Note PPD # 2 Subjective: Doing well overall. Reports that her itching is pretty steady since yesterday. Does have occasional episodes where she'll have itching on her abdomen and has noticed several times where she will have hives on her abdomen. Ambulating without difficulty. Lochia minimal. Voiding without difficulty. Tolerating regular diet without nausea or vomiting. Pain controlled with oral medications. Bottlefeeding with minimal difficulty. Objective: Vitals: Vital Signs - 24 hr 12/29/18 12/29/18 12/30/18 14:55 22:10 02:55 Temperature 36.8 C Pulse, 86 72 77 Peripheral Respiratory 14 14 Rate Blood Pressure 121/72 120/73 113/68 O2 Sat by Pulse 99 99 100 Oximetry Physical Exam General: Alert and oriented, no acute distress Lungs: Clear to auscultation bilaterally Heart: Regular rate and rhythm Abdomen: Soft, minimal appropriate tenderness, non-distended, fundus midline, nontender, and at the umbilicus Extremities: Trace edema in bilateral lower extremities to mid shins. No calf tenderness. ASSESSMENT: 28-year-old female s/p normal vaginal delivery PPD #2, complicated by intrahepatic cholestasis of , medical induction at 36 weeks due to cholestasis and history of abnormal Pap smear PLAN: Doing well Bottlefeeding with minimal difficulty. Assist as needed Lochia minimal. Continue to monitor for appropriate lochia. Continue routine care Continue to monitor patient's itching and treat as needed. Discharge home today Ashvin Garcia MD 8:09 AM 12/30/2018
--- NOTE | 2018-12-30 08:19 | PCM.DCSUM1 ---
Discharge Summary - Hospital Course Free Text/Narrative:: Delivery note: Monty is a 28-year-old 1 now para 1001 white female who was admitted last evening with a diagnosis of 36-2/7 week intrauterine with complication of intrahepatic cholestasis of . She is admitted for medical induction of labor. She was evaluated clinically and with electronic monitoring which showed reassuring, reactive nonstress test. She is started on cervical ripening therapy with Cytotec initially 25 g per vagina and then 3 hours later 50 g per vagina. With this patient began myah and after the second dose decision was made to proceed with Pitocin induction instead of another dose of Cytotec. At approximately 0500 hrs. on 12/28/2018 patient had artificial rupture membranes. By this time she had had an epidural in place for labor and analgesia. She fairly rapidly progressed to complete cervical dilation by 0916 hrs. She pushed for approximately one hour and delivered a viable, shore, female infant with Apgars of 8 and 9, weight of 2500 g (5 lbs. 8 oz.) and the length of 18.75 inches in a left occiput anterior position. The perineum remained intact and no suturing was necessary. The baby was placed on mom's abdomen. Nose and mouth were bulb suctioned. The cord was allowed to pulsate for approximately 1 minute after which time it was clamped 2 and cut. Baby was taken to the warmer and was assessed. Pitocin was started via the IV at 500 mL/h to facilitate increase in uterine tone and decrease likelihood of bleeding. Estimated blood loss was 100 mL. The umbilical cord was noted to have 3 vessels noted to have an umbilical cord with 3 vessels. The placenta delivered in a Arevalo fashion, appeared intact and complete and was discarded per patient desire. Patient plans to breast- feed. Condition: Good HPI Initial Comments: Delivery note: Monty is a 28-year-old 1 now para 1001 white female who was admitted last evening with a diagnosis of 36-2/7 week intrauterine with complication of intrahepatic cholestasis of . She is admitted for medical induction of labor. She was evaluated clinically and with electronic monitoring which showed reassuring, reactive nonstress test. She is started on cervical ripening therapy with Cytotec initially 25 g per vagina and then 3 hours later 50 g per vagina. With this patient began myah and after the second dose decision was made to proceed with Pitocin induction instead of another dose of Cytotec. At approximately 0500 hrs. on 12/28/2018 patient had artificial rupture membranes. By this time she had had an epidural in place for labor and analgesia. She fairly rapidly progressed to complete cervical dilation by 0916 hrs. She pushed for approximately one hour and delivered a viable, shore, female with Apgars of 8 and 9, weight of 2500 g (5 lbs. 8 oz.) and the length of 18.75 inches in a left occiput anterior position. The perineum remained intact and no suturing was necessary. The baby was placed on mom's abdomen. Nose and mouth were bulb suctioned. The cord was allowed to pulsate for approximately 1 minute after which time it was clamped 2 and cut. Baby was taken to the warmer and was assessed. Pitocin was started via the IV at 500 mL/h to facilitate increase in uterine tone and decrease likelihood of bleeding. Estimated blood loss was 100 mL. The umbilical cord was noted to have 3 vessels noted to have an umbilical cord with 3 vessels. The placenta delivered in a Arevalo fashion, appeared intact and complete and was discarded per patient desire. Patient plans to breast- feed. Condition: Good Brief History: Delivery note: Monty is a 28-year-old 1 now para 1001 white female who was admitted last evening with a diagnosis of 36-2/7 week intrauterine with complication of intrahepatic cholestasis of . She is admitted for medical induction of labor. She was evaluated clinically and with electronic monitoring which showed reassuring, reactive nonstress test. She is started on cervical ripening therapy with Cytotec initially 25 g per vagina and then 3 hours later 50 g per vagina. With this patient began myah and after the second dose decision was made to proceed with Pitocin induction instead of another dose of Cytotec. At approximately 0500 hrs. on 12/28/2018 patient had artificial rupture membranes. By this time she had had an epidural in place for labor and analgesia. She fairly rapidly progressed to complete cervical dilation by 0916 hrs. She pushed for approximately one hour and delivered a viable, shore, female infant with Apgars of 8 and 9, weight of 2500 g (5 lbs. 8 oz.) and the length of 18.75 inches in a left occiput anterior position. The perineum remained intact and no suturing was necessary. The baby was placed on mom's abdomen. Nose and mouth were bulb suctioned. The cord was allowed to pulsate for approximately 1 minute after which time it was clamped 2 and cut. Baby was taken to the warmer and was assessed. Pitocin was started via the IV at 500 mL/h to facilitate increase in uterine tone and decrease likelihood of bleeding. Estimated blood loss was 100 mL. The umbilical cord was noted to have 3 vessels noted to have an umbilical cord with 3 vessels. The placenta delivered in a Arevalo fashion, appeared intact and complete and was discarded per patient desire. Patient plans to breast-feed. Condition: Good Diagnosis: Stroke: No - Discharge Data Discharge Date: 12/30/18 Discharge Disposition: Home, Self-Care 01 Condition: Good - Referral to Home Health Primary Care Physician: Celso Vazquez MD - Discharge Diagnosis/Problem(s) (1) 36 weeks gestation of SNOMED Code(s): 15376972 ICD Code: Z3A.36 - 36 WEEKS GESTATION OF Status: Acute Current Visit: Yes (2) Cholestasis during in third trimester SNOMED Code(s): 990085461 ICD Code: O26.613 - LIVER AND BILIARY TRACT DISORD IN , THIRD TRIMESTER; K83.1 - OBSTRUCTION OF BILE DUCT Status: Acute Current Visit: Yes (3) Vaginal delivery SNOMED Code(s): 470402624 ICD Code: O80 - ENCOUNTER FOR FULL-TERM UNCOMPLICATED DELIVERY Status: Acute Current Visit: Yes - Patient Summary/Data Complications: None Consults: None Hospital Course: Monty Monreal was admitted for medically indicated induction of labor at 36 weeks 2 days due to intrahepatic cholestasis of . She had elevated bile acids in the clinic which was consistent with intrahepatic cholestasis of necessitating induction at 36 weeks. On admission her cervix was dilated to 0 cm. She was GBS negative. She was given a dose of Cytotec 25 mcg vaginally for induction of labor and subsequently received a second dose of Cytotec 50 mcg vaginally. She was given an epidural for anesthesia. She was given pitocin for augmentation. She had artificial rupture of membranes with clear fluid. She progressed to complete and began pushing. On 12/28/2018 she had a normal vaginal delivery of a live female infant at 10:16. Apgars of 8 and 9. Weight of 2500 g (5 pounds 8.2 ounces). Her course was uneventful. She reports that her itching improved after delivery on day #1 but was overall steady on day #2. Her pain was well controlled and she had minimal lochia. She was ambulating, tolerating a regular diet and voiding normally. She was bottlefeeding with minimal difficulty. She was afebrile and her hematocrit was 35.1 on admission. She desired to be discharged home on the morning of PPD #2. Her blood type is B+. - Patient Instructions Diet: Regular Diet as Tolerated Activity: Apply Ice, As Tolerated Activity, Other: Nothing in the vagina for 6 weeks. Driving: May Drive Today Showering/Bathing: May Shower Notify Provider of: Fever, Increased Pain, Swelling and Redness, Drainage, Nausea and/or Vomiting Other/Special Instructions: Please contact your physician's office if you have heavy vaginal bleeding enough to soak a pad in less than an hour for several hours. Monitor for any signs of an infection in the breasts with severe pain or redness of the breast. Please try to use tight fitting sports bra or Prabhakar bandage wrapped and cold compress on breasts to help reduce milk production. Avoid nipple stimulation to reduce milk production as well. - Discharge Plan *PRESCRIPTION DRUG MONITORING PROGRAM REVIEWED*: Not Applicable *COPY OF PRESCRIPTION DRUG MONITORING REPORT IN PATIENT RAMYA: Not Applicable Home Medications: Home Meds [id number]/Iron Fumarate/FA/DSS [ 19 Tablet] 1 each PO DAILY 12/27/18 [ History] Acetaminophen [Tylenol] 650 mg PO Q6H PRN tablet 12/30/18 [Rx] Benzocaine/Menthol [Dermoplast Pain Relief [place]] 1 spray TOP ASDIRECTED PRN canister 12/30/18 [Rx] Docusate Sodium [Colace] 100 mg PO BID PRN cap 12/30/18 [Rx] Hydrocortisone Acetate [Anucort-HC] 25 mg RECTAL BID PRN supp 12/30/18 [Rx] Ibuprofen [Motrin] 600 mg PO Q6H PRN tablet 12/30/18 [Rx] Witch Ashley [Tucks] 1 pad TOP ASDIRECTED PRN pad 12/30/18 [Rx] Patient Handouts: Vaginal Delivery, Care After, Cholestasis of Referrals: Celso Vazquez MD [Primary Care Provider] - - Discharge Summary/Plan Comment DC Time >30 min.: No - Patient Data Vitals - Most Recent: Last Vital Signs Temp 36.8 C 12/29/18 14:55 Pulse 77 12/30/18 02:55 Resp 14 12/30/18 02:55 BP 113/68 12/30/18 02:55 Pulse Ox 100 12/30/18 02:55 Weight - Most Recent: 91.354 kg I&O - Last 24 hours: Intake & Output 12/29/18 12/30/18 12/30/18 22:59 06:59 14:59 Intake Total 300 Balance 300 Med Orders - Current: Current Medications Acetaminophen (Tylenol) 650 mg PO Q4H PRN PRN Reason: mild pain or fever Benzocaine/Menthol (Dermoplast Pain Relief [place]) 0 gm TOP ASDIRECTED PRN PRN Reason: Perineal Comfort Measure Docusate Sodium (Colace) 100 mg PO BID PRN PRN Reason: Constipation Hydrocortisone Acetate (Anucort-Hc) 25 mg RECTAL BID PRN PRN Reason: Hemorrhoid pain Ibuprofen (Motrin) 600 mg PO Q4H PRN PRN Reason: Mild pain or fever Last Admin: 12/29/18 22:14 Dose: 600 mg Prenat Multivit/Hydraulic Jack Mechanic/Iron/Folic Ac ( Plus Iron) 1 each PO DAILY DAVY Last Admin: 12/29/18 09:29 Dose: 1 each Witch Ashley (Tucks) 1 pad TOP ASDIRECTED PRN PRN Reason: Pain Discontinued Medications Bupivacaine HCl (Sensorcaine-Mpf 0.25%) 10 ml .ROUTE .STK-MED ONE Stop: 12/27/18 00:01 Diphenhydramine HCl (Benadryl) 25 mg IVPUSH Q6H PRN PRN Reason: pruritis Ephedrine Sulfate (Ephedrine Sulfate) 5 mg IVPUSH ASDIRECTED PRN PRN Reason: Hypotension Fentanyl (Sublimaze) 100 mcg EPIDUR Q3H PRN PRN Reason: Pain Last Admin: 12/28/18 00:00 Dose: 100 mcg Fentanyl/Bupivacaine HCl (Fentanyl/Bupivacaine/Ns 2 Mcg-0.125% 250 Ml) 2 mcg EPIDUR CONTINUOUS PRN PRN Reason: Pain Last Admin: 12/28/18 00:00 Dose: 2 mcg Lactated Ringer's (Ringers, Lactated) 1,000 mls @ 100 mls/hr IV ASDIRECTED DAVY Last Admin: 12/28/18 02:10 Dose: 100 mls/hr Oxytocin/Lactated Ringer's (Pitocin In Lr 10 Units/1,000 Ml) 10 unit in 1,000 mls @ 12 mls/hr IV TITRATE DAVY; Protocol Last Titration: 12/28/18 08:10 Dose: 72 munits/min, 432 mls/hr Oxytocin/Lactated Ringer's (Pitocin In Lr 10 Units/1,000 Ml) 10 unit in 1,000 mls @ 500 mls/hr IV .CONTINUOUS DAVY Influenza Virus Vaccine (Pharmacy To Dose - Influenza Vaccine) 1 each IM ONETIME ONE Stop: 12/28/18 18:46 Influenza Virus Vaccine (Fluzone Quad Syringe) 60 mcg IM .ONCE ONE Stop: 12/27/18 19:01 Influenza Virus Vaccine (Fluzone Quad Syringe) 60 mcg IM .ONCE ONE Stop: 12/29/18 17:31 Last Admin: 12/29/18 17:28 Dose: 60 mcg Misoprostol (Cytotec) 25 mcg VAG ONETIME ONE Stop: 12/27/18 17:54 Last Admin: 12/27/18 18:18 Dose: 25 mcg Misoprostol (Cytotec) 50 mcg VAG Q3HR DAVY Last Admin: 12/28/18 01:30 Dose: Not Given Nalbuphine HCl (Nubain) 10 mg IVPUSH Q2H PRN PRN Reason: Pain Sodium Chloride (Saline Flush) 10 ml FLUSH ASDIRECTED PRN PRN Reason: Keep Vein Open
[2018-12-30] MEDS: Prenatal Multivitamin with Calcium/Folic Acid/Iron Tab PO SCH (13:47)
== END 2018-12-30 11:32 | disposition home or self-care (01) | DRG 560 ==
LOC: JD.OB 10:16 → OBSVTOIN 12-28 10:16 → JD.OB 12-28 10:17
PROVIDERS: ADMIT Obstetrics & Gynecology; ATTEND Obstetrics & Gynecology
PROC: 10E0XZZ Delivery of Products of Conception, External Approach (ICD-10-PCS; principal; 2018-12-28)
PROC: 10907ZC Drainage of Amniotic Fluid, Therapeutic from Products of Conception, Via Natural or Artificial Opening (ICD-10-PCS; 2018-12-28)
PROC: 3E0P7VZ Introduction of Hormone into Female Reproductive, Via Natural or Artificial Opening (ICD-10-PCS; 2018-12-28)
PROC: 3E033VJ Introduction of Other Hormone into Peripheral Vein, Percutaneous Approach (ICD-10-PCS; 2018-12-28)
PROC: 3E02340 Introduction of Influenza Vaccine into Muscle, Percutaneous Approach (ICD-10-PCS; 2018-12-28)
DX: O26.62 Liver and biliary tract disorders in childbirth (principal); K83.1 Obstruction of bile duct; O75.3 Other infection during labor; B96.89 Other specified bacterial agents as the cause of diseases classified elsewhere; O99.214 Obesity complicating childbirth; E66.9 Obesity, unspecified; Z23 Encounter for immunization; Z3A.36 36 weeks gestation of pregnancy; Z37.0 Single live birth; Z79.899 Other long term (current) drug therapy; O28.1 Abnormal biochemical finding on antenatal screening of mother
CPT/HCPCS: 01967; 36415; 51702; 59025; 59409; 80053; 81001; 84550; 85025; 86592; 90686; 94762; A9270-GY; G0008; J2590; J3010; J3490; J7120

== ENCOUNTER 2018-12-31 17:52 | Emergency (ER) | payer BC ==
--- NOTE | 2018-12-31 19:14 | EDM.PDOC ---
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 She started to feel her legs swell yesterday and they are little bit worse today. He had a term vaginal delivery and did not have any hypertension or dependent edema prior to delivery. She states her blood flow/lochia is not all that bad either. She states is a little bit of discomfort in the right lower extremity like "zingers "commenting going. She is not breast-feeding. She is on no medications other than her vitamin. She feels she is voiding normally. Bowel function is normal. Shortness of breath. No cough. Onset: Gradual Onset Date: 12/30/18 (First noted mild swelling yesterday evening and a little bit more so today.) Duration: Hour(s):, Getting Worse Location: Reports: Lower Extremity, Left (Both lower extremities are slightly swollen particularly around the ankles.), Lower Extremity, Right Quality: Reports: Ache (Mild ache in the right leg. Comes and goes) Severity: Mild Improves with: Reports: None Worsens with: Reports: None Context: Reports: Other (3 days with vaginal delivery.). 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) Bilateral Lower Leg Pain Score (Numeric/FACES): 1 - Related Data Allergies Allergy/AdvReac Type Severity Reaction Status Date / Time No Known Allergies Allergy Verified 12/27/18 17:53 Home Meds: Home Meds SUK112/Iron Fumarate/FA/DSS [ 19 Tablet] 1 each PO DAILY 12/27/18 [ History] Acetaminophen [Tylenol] 650 mg PO Q6H PRN tablet 12/30/18 [Rx] Benzocaine/Menthol [Dermoplast Pain Relief [place]] 1 spray TOP ASDIRECTED PRN canister 12/30/18 [Rx] Ibuprofen [Motrin] 600 mg PO Q6H PRN tablet 12/30/18 [Rx] Witch Eran [Tucks] 1 pad TOP ASDIRECTED PRN pad 12/30/18 [Rx] Past Medical History HEENT History: Reports: None Cardiovascular History: Reports: None Respiratory History: Reports: None Gastrointestinal History: Reports: Other (See Below) Other Gastrointestinal History: Abdominal pain, lactose intolerant Genitourinary History: Reports: None 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 , Other (See Below) : 2 Para: 1 (First ended in miscarriage.) Other LAY OUT WORKER History: HPV Musculoskeletal History: Reports: Other (See Below) Other Musculoskeletal History: Right ankle fracture Neurological History: Reports: None Psychiatric History: Reports: None Endocrine/Metabolic History: Reports: Obesity/BMI 30+ Hematologic History: Reports: None Immunologic History: Reports: None Oncologic (Cancer) History: Reports: None Dermatologic History: Reports: None Other Dermatologic History: rash d/t cholestasis - Infectious Disease History Infectious Disease History: Reports: None - Past Surgical History Head Surgeries/Procedures: Reports: None HEENT Surgical History: Reports: Other (See Below) Other HEENT Surgeries/Procedures: [place] teeth extraction Cardiovascular Surgical History: Reports: None Respiratory Surgical History: Reports: None GI Surgical History: Reports: None Female Surgical History: Reports: None Endocrine Surgical History: Reports: None Neurological Surgical History: Reports: None Musculoskeletal Surgical History: Reports: ORIF Other Musculoskeletal Surgeries/Procedures:: ORIF Right fibula fracture Oncologic Surgical History: Reports: None Dermatological Surgical History: Reports: None Social & Family History - Family History Family Medical History: Noncontributory - Tobacco Use Smoking Status *Q: Never Smoker - Caffeine Use Caffeine Use: Reports: Coffee, Soda, Tea - Recreational Drug Use Recreational Drug Use: No - Living Situation & Occupation Living situation: Reports: Occupation: Employed ED ROS GENERAL - Review of Systems Review Of Systems: See Below Constitutional: Reports: No Symptoms HEENT: Reports: No Symptoms Respiratory: Reports: No Symptoms Cardiovascular: Reports: No Symptoms Endocrine: Reports: No Symptoms GI/Abdominal: Reports: Other (Does have some hemorrhoids which are related to . Using witch eran Tucks pads and Tylenol when necessary.) : Reports: Other (The episiotomy is healing well. There are very little discomfort. The lochia is not very heavy at all. She's past 3 clots is all.) Musculoskeletal: Reports: No Symptoms Skin: Reports: No Symptoms Neurological: Reports: No Symptoms Psychiatric: Reports: No Symptoms Hematologic/Lymphatic: Reports: No Symptoms Immunologic: Reports: No Symptoms ED EXAM - Physical Exam Exam: See Below Exam Limited By: No Limitations General Appearance: Alert, WD/WN, No Apparent Distress, Other (Blood pressure is mildly elevated 1 3986 but came down to 122/84. O2 sats 99% on room air) Eye Exam: Bilateral Eye: Normal Inspection, PERRL Nose: Normal Inspection Throat/Mouth: Normal Inspection, Normal Lips, Normal Teeth, Normal Oropharynx Head: Atraumatic, Normocephalic Neck: Normal Inspection, Supple, Non-Tender, Full Range of Motion Respiratory/Chest: No Respiratory Distress, Lungs Clear, Normal Breath Sounds, No Accessory Muscle Use Cardiovascular: Normal Peripheral Pulses, Regular Rate, Rhythm, No Edema, No Gallop, No Murmur, No Rub GI/Abdominal Exam: Normal Bowel Sounds, Soft, Non-Tender, No Organomegaly, No Abnormal Bruit, No Mass, Pelvis Stable Extremities: Pedal Edema (2+ pitting edema to the knees bilaterally.), Other ( The tissues are not top. They are soft and compliant.) Neurological: Alert, Oriented, CN II-XII Intact, Normal Cognition Psychiatric: Normal Affect, Normal Mood Skin Exam: Warm, Dry, Intact, Normal Color Course - Vital Signs Last Recorded V/S: Last Vital Signs Temp 37.2 C 12/31/18 18:14 Pulse 95 12/31/18 18:14 Resp 20 12/31/18 18:14 BP 139/86 12/31/18 18:14 Pulse Ox 99 12/31/18 18:14 - Radiology Interpretation Free Text/Narrative:: 28-year-old female presents the ED with new onset bilateral dependent edema. She is 3 days . She states she had very little swelling in her lower extremities may be up until the day before she was due. She had a term vaginal delivery without any complications. As far as I can ascertain blood loss was felt to be normal. She states her legs really don't hurt she has the occasional zinger-like pain in her right leg but no throbbing. Legs seem to be a bit more swollen today than yesterday. On examination I agree there is bilateral pitting edema-- 2+ of both lower extremities. She has clear lung anne. O2 sats are normal. She is voiding normally. Plan will have bilateral ultrasound of lower extremities done. 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 Therefore I did bilateral Doppler ultrasounds of both lower extremities at the bedside and found no evidence of DVT with good compression and augmentation of all veins all way up to the groin bilaterally. Reassured this is dependent edema due to drop in albumin. She is to refrain from high salt diet and to elevate her legs as much as possible during the day for the next 3 or 4 days. Swelling is likely to be about the same tomorrow and then start to slowly reabsorb over the next week to 10 days. No medication is indicated at this time. Departure - Departure Time of Disposition: 19:12 Disposition: Home, Self-Care 01 Condition: Fair Clinical Impression: Dependent edema - Discharge Information *PRESCRIPTION DRUG MONITORING PROGRAM REVIEWED*: Not Applicable *COPY OF PRESCRIPTION DRUG MONITORING REPORT IN PATIENT RAMYA: Not Applicable Instructions: Edema, [id number] Referrals: Celso Vazquez MD [Primary Care Provider] - Forms: ED Department Discharge Additional Instructions: Evaluation the emergency room today in regards to swelling in both lower extremities gradually worsening over the last few days. Urine output 3 days with delivery of a term female infant vaginally. Examination of both lower extremities does reveal that there is increased fluid in the soft tissues of both lower extremities about equal. Bedside ultrasound done by me on both legs does not reveal any evidence of deep venous thrombosis or blood clot in the leg. Swelling is occurred due to albumin which is a major protein in your bloodstream decreasing after blood loss and having a baby. This causes the blood vessels in the lower extremities to become a little bit leaky and fluid will has leaked out into the soft tissues. Elevate your legs is much as possible throughout the day and swelling will be prolonged on within 5-7 days time. At this time no other treatment is required. Should try and refrain from a high salt diet.
== END 2018-12-31 19:26 | disposition home or self-care (01) ==
LOC: JD.ED 17:52
DX: O12.05 Gestational edema, complicating the puerperium (principal)
CPT/HCPCS: 99282

== ENCOUNTER 2019-10-21 06:35 | Day surgery (SDC) | payer BC ==
[~2019-10-21 06:35] MED LIST changes: -Bupivacaine 0.25% 10 ML SDV ONE; +Lactated Ringers 1,000 ML IV SCH; +Lidocaine 1%/Sod Bicarbonate in NS 8.4% 1 ML Syringe IDERM PRN; +Sodium Chloride 0.9% 10 ML Syringe FLUSH PRN
[2019-10-21] MEDS ORDERED: Bupivacaine 0.25% 10 ML SDV ONE (06:42)
[2019-10-21] MEDS ORDERED: Ketorolac 30 MG/ML SDV ONE (07:46)
[2019-10-21] MEDS ORDERED: Ondansetron 4 MG/2 ML SDV ONE (07:46)
[2019-10-21] MEDS ORDERED: Propofol 200 MG/20 ML SDV ONE (07:46)
[2019-10-21] MEDS ORDERED: fentaNYL 100 MCG/2 ML SDV ONE ×2 (07:46→08:09)
[2019-10-21] MEDS ORDERED: Lactated Ringers 1,000 ML ONE (07:46)
[2019-10-21] MEDS ORDERED: ceFAZolin 1 GM Vial ONE (07:46)
[2019-10-21] MEDS ORDERED: Midazolam 1 MG/ML 2 ML SDV ONE (07:47)
[2019-10-21] MEDS ORDERED: HYDROmorphone 0.5 MG/0.5 ML Syringe ONE (08:19)
--- NOTE | 2019-10-21 09:02 | CR ---
Right ankle: Single AP view of the right ankle was obtained utilizing C-arm device. Comparison: No prior ankle exam is available. Study shows removal of hardware within the fibula. Lucent screw tracks are noted. Ankle mortise appears symmetric on this study. Fluoroscopy time is given as 0.9 seconds. Impression: 1. Procedural study as described above. Diagnostic code #2 This report was dictated in MDT
--- NOTE | 2019-10-21 09:20 | PCM.PREANE ---
Preanesthetic Assessment - Procedure Proposed Procedure: Hardware removal right ankle - Anesthesia/Transfusion/Family Hx Anesthesia History: Prior Anesthesia Without Reaction Family History of Anesthesia Reaction: No Transfusion History: No Prior Transfusion(s) Intubation History: Unknown - Review of Systems General: No Symptoms Pulmonary: No Symptoms Cardiovascular: No Symptoms Gastrointestinal: No Symptoms Neurological: No Symptoms Other: Reports: None (Obesity), Thyroid Problems - Physical Assessment NPO Status Date: 10/20/19 NPO Status Time: 21:30 Vital Signs: Last Vital Signs Temp 36.2 C 10/21/19 09:06 Pulse 78 10/21/19 06:45 Resp 15 10/21/19 09:15 BP 103/64 10/21/19 09:15 Pulse Ox 93 L 10/21/19 09:15 Height: 1.63 m Weight: 86.183 kg ASA Class: 2 Mental Status: Alert & Oriented x3 Airway Class: Mallampati = 1 Dentition: Reports: Normal Dentition Thyro-Mental Finger Breadths: 3 Mouth Opening Finger Breadths: 3 ROM/Head Extension: Full Lungs: Clear to Auscultation, Normal Respiratory Effort Cardiovascular: Regular Rate, Regular Rhythm - Lab Values: Laboratory Last Values Urine HCG, Qual Negative (NEGATIVE) 10/21/19 07:20 COVID-19 PCR Not detected (NOT DETECT) 10/18/19 10:30 MRSA (PCR) Negative 10/12/19 09:39 - Allergies Allergies/Adverse Reactions: Allergies Allergy/AdvReac Type Severity Reaction Status Date / Time No Known Allergies Allergy Verified 10/21/19 07:18 - Acknowledgements Anesthesia Type Planned: General Anesthesia (LMA) Pt an Appropriate Candidate for the Planned Anesthesia: Yes Alternatives and Risks of Anesthesia Discussed w Pt/Guardian: Yes Pt/Guardian Understands and Agrees with Anesthesia Plan: Yes PreAnesthesia Questionnaire HEENT History: Reports: Other (See Below) Other HEENT History: GLASSES, CONTACTS Cardiovascular History: Reports: None Respiratory History: Reports: None Gastrointestinal History: Reports: Cholelithiasis, Other (See Below) Other Gastrointestinal History: Abdominal pain, lactose intolerant Genitourinary History: Reports: None 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: , 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 , Other (See Below) Other OB/BYN History: HPV, PELVIC PAIN, BACTERIAL VAGINOSIS Musculoskeletal History: Reports: Other (See Below) Other Musculoskeletal History: Right ankle fracture Neurological History: Reports: None Psychiatric History: Reports: None Endocrine/Metabolic History: Reports: Obesity/BMI 30+ Hematologic History: Reports: None Immunologic History: Reports: None Oncologic (Cancer) History: Reports: None Dermatologic History: Reports: None Other Dermatologic History: rash d/t cholestasis - Infectious Disease History Infectious Disease History: Reports: None - Past Surgical History Head Surgeries/Procedures: Reports: None HEENT Surgical History: Reports: Other (See Below) Other HEENT Surgeries/Procedures: [place] teeth extraction Cardiovascular Surgical History: Reports: None Respiratory Surgical History: Reports: None GI Surgical History: Reports: None, Cholecystectomy Female Surgical History: Reports: None Endocrine Surgical History: Reports: None Neurological Surgical History: Reports: None Musculoskeletal Surgical History: Reports: ORIF Other Musculoskeletal Surgeries/Procedures:: ORIF Right fibula fracture Oncologic Surgical History: Reports: None Dermatological Surgical History: Reports: None - SUBSTANCE USE Smoking Status *Q: Never Smoker Recreational Drug Use History: No - HOME MEDS Home Medications: Home Meds Prenat 115/Iron Fum/Folic/Dss [ 19 Tablet] 1 each PO DAILY 12/27/18 [History] Levothyroxine 25 mg PO DAILY 10/20/19 [History] - CURRENT (IN HOUSE) MEDS Current Meds: Current Medications Lactated Ringer's (Ringers, Lactated) 1,000 mls @ 125 mls/hr IV ASDIRECTED DAVY Stop: 10/21/19 23:00 Last Admin: 10/21/19 06:55 Dose: 125 mls/hr Documented by: Lidocaine/Sodium Bicarbonate (Buffered Lidocaine 1% In Ns 8.4%) 0.25 ml IDERM ONETIME PRN PRN Reason: Prior to IV Start Stop: 10/21/19 23:00 Last Admin: 10/21/19 06:55 Dose: 0.25 ml Documented by: Sodium Chloride (Saline Flush) 10 ml FLUSH ASDIRECTED PRN PRN Reason: Keep Vein Open Stop: 10/21/19 23:00 Discontinued Medications Bupivacaine HCl (Sensorcaine-Mpf 0.25%) Confirm Administered Dose 20 ml .ROUTE .STK-MED ONE Stop: 10/21/19 06:43 Cefazolin Sodium (Ancef) Confirm Administered Dose 2 gm .ROUTE .STK-MED ONE Stop: 10/21/19 07:47 Fentanyl (Sublimaze) Confirm Administered Dose 100 mcg .ROUTE .STK-MED ONE Stop: 10/21/19 07:47 Fentanyl (Sublimaze) Confirm Administered Dose 100 mcg .ROUTE .STK-MED ONE Stop: 10/21/19 08:10 Hydromorphone HCl (Dilaudid) Confirm Administered Dose 0.5 mg .ROUTE .STK-MED ONE Stop: 10/21/19 08:20 Lactated Ringer's (Ringers, Lactated) Confirm Administered Dose 1,000 mls @ as directed .ROUTE .ST-MED ONE Stop: 10/21/19 07:47 Ketorolac Tromethamine (Toradol) Confirm Administered Dose 30 mg .ROUTE .ST-MED ONE Stop: 10/21/19 07:47 Midazolam HCl (Versed 1 Mg/Ml) Confirm Administered Dose 2 mg .ROUTE .STK-MED ONE Stop: 10/21/19 07:48 Ondansetron HCl (Zofran) Confirm Administered Dose 4 mg .ROUTE .STK-MED ONE Stop: 10/21/19 07:47 Propofol (Diprivan 20 Ml) Confirm Administered Dose 400 mg .ROUTE .STK-MED ONE Stop: 10/21/19 07:47
[2019-10-21] MEDS ORDERED: Ondansetron 4 MG/2 ML SDV IVPUSH PRN (09:21)
[2019-10-21] MEDS ORDERED: HYDROmorphone 0.5 MG/0.5 ML Syringe IVPUSH PRN (09:21)
--- NOTE | 2019-10-21 09:21 | PCM.POSTAN ---
POST ANESTHESIA ASSESSMENT - MENTAL STATUS Mental Status: Somnolent - VITAL SIGNS Vital Signs: Last Vital Signs Temp 36.2 C 10/21/19 09:06 Pulse 78 10/21/19 06:45 Resp 15 10/21/19 09:15 BP 103/64 10/21/19 09:15 Pulse Ox 93 L 10/21/19 09:15 - RESPIRATORY Respiratory Status: Respiratory Rate WNL, Airway Patent, O2 Saturation Stable, Supplemental Oxygen - CARDIOVASCULAR CV Status: Pulse Rate WNL, Blood Pressure Stable - GASTROINTESTINAL GI Status: No Symptoms - PAIN Pain Score: 0 - POST OP HYDRATION Hydration Status: Adequate & Stable
[2019-10-21] MEDS: fentaNYL 100 MCG/2 ML SDV IVPUSH PRN ×2 (09:31→09:44)
--- NOTE | 2019-10-21 10:05 | PCM.OPNOTE ---
- General Post-Op/Procedure Note Date of Surgery/Procedure: 10/21/19 Operative Procedure(s): deep hardware removal right ankle Pre Op Diagnosis: painful hardware right ankle Post-Op Diagnosis: Same Anesthesia Technique: General LMA, Local Primary Surgeon: Ham Inman Anesthesia Provider: Mihaela Farrar Pecan Picker: Monique Hanson EBL in mLs: 5 Complications: None Condition: Good Free Text/Narrative:: Intake & Output 10/20/19 10/21/19 10/21/19 22:59 06:59 14:59 Intake Total 200 Balance 200
[2019-10-21] MEDS ORDERED: Acetaminophen/HYDROcodone 325-5 MG Tab PO ONE (10:16)
--- NOTE | 2019-10-21 10:54 | PCM48HPAN ---
Post Anesthesia Note - EVALUATION WITHIN 48HRS OF ANESTHETIC Vital Signs in Normal Range: Yes Patient Participated in Evaluation: Yes Respiratory Function Stable: Yes Airway Patent: Yes Cardiovascular Function Stable: Yes Hydration Status Stable: Yes Pain Control Satisfactory: Yes Nausea and Vomiting Control Satisfactory: Yes Mental Status Recovered: Yes Vital Signs: Last Vital Signs Temp 36.1 C 10/21/19 10:00 Pulse 78 10/21/19 06:45 Resp 17 10/21/19 10:00 BP 121/70 10/21/19 10:00 Pulse Ox 96 10/21/19 10:00
--- NOTE | 2019-10-27 09:08 | OR ---
DATE OF OPERATION: 10/21/2019 SURGEON: Ham Inman MD OPERATION PERFORMED: Deep hardware removal, right ankle. PREOPERATIVE DIAGNOSIS: Painful hardware, right ankle. POSTOPERATIVE DIAGNOSIS: Painful hardware, right ankle. ANESTHESIA: General LMA with local. ANESTHESIA PROVIDER: Radha De Luna. COOK PRESSURE: Monique Hanson LPN. ESTIMATED BLOOD LOSS: 5 mL. COMPLICATIONS: None. CONDITION: Stable. DESCRIPTION OF PROCEDURE: The patient was identified in the preoperative holding area. Proper site was marked and identified by the surgeon. The patient was taken back to the operative theater, where after adequate anesthesia, the patient's right lower extremity had a nonsterile tourniquet applied and sterilely prepped and draped in the usual sterile fashion. OR time-out was performed. The patient received 2 g IV Ancef. Right lower extremity was exsanguinated. Tourniquet was insufflated to 250 mmHg. The previous incision was utilized. This was taken through the subcutaneous tissue. Care was taken to protect the nerve. This was taken down to the plate and the 2 lag screws. They were all identified. All 7 screws were then removed with no stripping and then the plate was removed. The curette and rongeur were used to soften any roughened surfaces, and all the previous screw holes were curetted. Adequate saline was then irrigated through the wound. 2-0 Vicryl was used subcutaneously, and amber were used for closure of the skin. The patient was placed in a sterile soft dressing and a Cam boot and sent to the PACU in stable condition. MMODAL /[id number]
== END 2019-10-21 11:06 | disposition home or self-care (01) ==
LOC: JD.SDS 06:35
PROVIDERS: ATTEND Orthopaedic Surgery
DX: T84.84XA Pain due to internal orthopedic prosthetic devices, implants and grafts, initial encounter (principal); E03.9 Hypothyroidism, unspecified; E66.9 Obesity, unspecified; Z11.59 Encounter for screening for other viral diseases; Z79.890 Hormone replacement therapy; Z68.33 Body mass index [BMI] 33.0-33.9, adult
CPT/HCPCS: 20680; 76000; 81025; 87635; 87641; A9270; J0690; J1170; J1885; J2250; J2405; J2704; J3010; J3490; J7120; 01480; U0002

== ENCOUNTER 2019-12-31 07:01 | Day surgery (SDC) | payer BC ==
[2019-12-31] MEDS ORDERED: Propofol 200 MG/20 ML SDV ONE ×2 (07:20→08:06)
[2019-12-31] MEDS ORDERED: Midazolam 1 MG/ML 2 ML SDV ONE (07:20)
[2019-12-31] MEDS ORDERED: fentaNYL 100 MCG/2 ML SDV ONE (07:20)
[2019-12-31] MEDS ORDERED: Ondansetron 4 MG/2 ML SDV ONE (07:21)
[2019-12-31] MEDS ORDERED: Ketamine 500 mg/10 ML MDV ONE (07:21)
[2019-12-31] MEDS ORDERED: Lidocaine 1% 4 ML ONE (07:21)
[2019-12-31] MEDS ORDERED: Oxytocin 10 Units/1 ML SDV ONE (07:22)
--- NOTE | 2019-12-31 07:38 | PCM.PREANE ---
Preanesthetic Assessment - Procedure Proposed Procedure: Suction, Dilation and Curettage - Anesthesia/Transfusion/Family Hx Anesthesia History: Prior Anesthesia Without Reaction Transfusion History: No Prior Transfusion(s) Intubation History: Unknown - Review of Systems General: No Symptoms Pulmonary: No Symptoms Cardiovascular: No Symptoms Gastrointestinal: No Symptoms Neurological: No Symptoms Other: Reports: Thyroid Problems (Hypothyroid) - Physical Assessment NPO Status Date: 12/30/19 NPO Status Time: 22:00 ASA Class: 1 Mental Status: Alert & Oriented x3 Airway Class: Mallampati = 2 Dentition: Reports: Normal Dentition Thyro-Mental Finger Breadths: 3 Mouth Opening Finger Breadths: 3 ROM/Head Extension: Full Lungs: Clear to Auscultation, Normal Respiratory Effort Cardiovascular: Regular Rate, Regular Rhythm - Lab Values: Laboratory Last Values WBC 8.62 K/mm3 (3.98-10.04) 12/31/19 07:06 RBC 4.47 M/mm3 (3.98-5.22) 12/31/19 07:06 Hgb 13.2 gm/dl (11.2-15.7) 12/31/19 07:06 Hct 39.4 % (34.1-44.9) 12/31/19 07:06 MCV 88.1 fl (79.4-94.8) 12/31/19 07:06 MCH 29.5 pg (25.6-32.2) 12/31/19 07:06 MCHC 33.5 g/dl (32.2-35.5) 12/31/19 07:06 RDW Std Deviation 41.9 fL (36.4-46.3) 12/31/19 07:06 Plt Count 386 K/mm3 (182-369) H 12/31/19 07:06 MPV 9.8 fl (9.4-12.3) 12/31/19 07:06 Neut % (Auto) 60.7 % (34.0-71.1) 12/31/19 07:06 Lymph % (Auto) 26.6 % (19.3-51.7) 12/31/19 07:06 [place] % (Auto) 8.4 % (4.7-12.5) 12/31/19 07:06 Eos % (Auto) 3.7 (0.7-5.8) 12/31/19 07:06 Baso % (Auto) 0.3 % (0.1-1.2) 12/31/19 07:06 Neut # (Auto) 5.23 K/mm3 (1.56-6.13) 12/31/19 07:06 Lymph # (Auto) 2.29 K/mm3 (1.18-3.74) 12/31/19 07:06 [place] # (Auto) 0.72 K/mm3 (0.24-0.36) H 12/31/19 07:06 Eos # (Auto) 0.32 K/mm3 (0.04-0.36) 12/31/19 07:06 Baso # (Auto) 0.03 K/mm3 (0.01-0.08) 12/31/19 07:06 HCG, Quant 50852.0 mIU/mL 12/27/19 12:04 - Allergies Allergies/Adverse Reactions: Allergies Allergy/AdvReac Type Severity Reaction Status Date / Time No Known Allergies Allergy Verified 12/30/19 09:58 - Acknowledgements Anesthesia Type Planned: MAC Pt an Appropriate Candidate for the Planned Anesthesia: Yes Alternatives and Risks of Anesthesia Discussed w Pt/Guardian: Yes Pt/Guardian Understands and Agrees with Anesthesia Plan: Yes PreAnesthesia Questionnaire HEENT History: Reports: Impaired Vision Other HEENT History: GLASSES, CONTACTS Cardiovascular History: Reports: None Respiratory History: Reports: None Gastrointestinal History: Reports: Other (See Below) Other Gastrointestinal History: Abdominal pain, lactose intolerant Genitourinary History: Reports: None 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 , Other (See Below) Other OB/BYN History: HPV, ovarian cyst, ovulation pain, pelvic pain, , BV, SAB Musculoskeletal History: Reports: None, Other (See Below) Other Musculoskeletal History: Right ankle fracture Neurological History: Reports: None Psychiatric History: Reports: None Endocrine/Metabolic History: Reports: Hypothyroidism, Obesity/BMI 30+ Hematologic History: Reports: None Immunologic History: Reports: None Oncologic (Cancer) History: Reports: None Dermatologic History: Reports: None Other Dermatologic History: rash d/t cholestasis - Infectious Disease History Infectious Disease History: Reports: Human Papilloma Virus (HPV) - Past Surgical History Head Surgeries/Procedures: Reports: None HEENT Surgical History: Reports: Other (See Below) Other HEENT Surgeries/Procedures: [place] teeth extraction Cardiovascular Surgical History: Reports: None Respiratory Surgical History: Reports: None GI Surgical History: Reports: Cholecystectomy Female Surgical History: Reports: D&C Endocrine Surgical History: Reports: None Neurological Surgical History: Reports: None Musculoskeletal Surgical History: Reports: ORIF Other Musculoskeletal Surgeries/Procedures:: ORIF Right fibula fracture with repair, and later hardware removal Oncologic Surgical History: Reports: None Dermatological Surgical History: Reports: None - SUBSTANCE USE Tobacco Use Status *Q: Never Tobacco User Recreational Drug Use History: No - HOME MEDS Home Medications: Home Meds Prenat 115/Iron Fum/Folic/Dss [ 19 Tablet] 1 each PO DAILY 12/27/18 [History] Levothyroxine 75 mcg PO DAILY 12/30/19 [History] - CURRENT (IN HOUSE) MEDS Current Meds: Current Medications Lactated Ringer's (Ringers, Lactated) 1,000 mls @ 125 mls/hr IV ASDIRECTED DAVY Lidocaine/Sodium Bicarbonate (Buffered Lidocaine 1% In Ns 8.4%) 0.25 ml IDERM ONETIME PRN PRN Reason: Prior to IV Start Sodium Chloride (Saline Flush) 10 ml FLUSH ASDIRECTED PRN PRN Reason: Keep Vein Open Discontinued Medications Fentanyl (Sublimaze) Confirm Administered Dose 100 mcg .ROUTE .STK-MED ONE Stop: 12/31/19 07:21 Lidocaine HCl (Xylocaine-Mpf 1%) Confirm Administered Dose 4 mls @ as directed .ROUTE .STK-MED ONE Stop: 12/31/19 07:22 Ketamine HCl (Ketalar) Confirm Administered Dose 500 mg .ROUTE .STK-MED ONE Stop: 12/31/19 07:22 Midazolam HCl (Versed 1 Mg/Ml) Confirm Administered Dose 2 mg .ROUTE .STK-MED ONE Stop: 12/31/19 07:21 Ondansetron HCl (Zofran) Confirm Administered Dose 4 mg .ROUTE .STK-MED ONE Stop: 12/31/19 07:22 Oxytocin (Pitocin) Confirm Administered Dose 20 unit .ROUTE .STK-MED ONE Stop: 12/31/19 07:23 Propofol (Diprivan 20 Ml) Confirm Administered Dose 200 mg .ROUTE .STK-MED ONE Stop: 12/31/19 07:21
[2019-12-31] MEDS ORDERED: Ketorolac 30 MG/ML SDV ONE (08:08)
--- NOTE | 2019-12-31 08:21 | PCM.OPNOTE ---
- General Post-Op/Procedure Note Date of Surgery/Procedure: 12/31/19 Operative Procedure(s): Dilation and suction curettage Findings: Uterus was found to be mid position anterior, uterine cavity sounded to 11 cm. Tissue removed from the endometrial cavity consistent with products of conception. No identifiable parts noted. No adnexal abnormalities noted. Pre Op Diagnosis: 1. Blighted ovum Post-Op Diagnosis: Same Anesthesia Technique: MAC Primary Surgeon: Celso Vazquez Anesthesia Provider: Alex Looney Rod Finisher: Jannie Carty Pathology: Endometrial curettings consistent with products of conception. Fluid Replacement, Intraop: 500 EBL in mLs: 50 Complications: None Condition: Good Free Text/Narrative:: Surgery duration: 6 minutes The patient was taken to the operating room and placed in a supine position operating table. After adequate general LMA anesthesia patient was placed in a dorsal lithotomy position. She was prepped and draped in usual fashion pro cedure. A weighted speculum was placed in the vagina. Cervix is found to be dilated to approximately 1 centimeters. Uterus was sounded to approximately 11 cm. It was found to be anterior and mid position. An 7 mm suction curette was then introduced in routine fashion the endometrial cavity was evacuated. Moderate amount tissue was obtained. Findings consistent with products of conception. A medium size sharp curet was introduced and very careful fashion the endometrial cavity was curetted. Polyp forceps was placed. No tissue was removed. It was be clear of any further tissue. The suction curet was then reintroduced and small and blood was removed. No further tissue was removed. This point the D&C was discontinued. The single-toothed tenaculum used to stabilize the anterior lip the cervix was removed. Blood was removed from the vagina with a stick sponge and the weighted speculum was removed from the vagina. The patient was awakened from MAC anesthesia. The patient was discharged from the operating room in good condition.
--- NOTE | 2019-12-31 08:21 | PCM48HPAN ---
Post Anesthesia Note - EVALUATION WITHIN 48HRS OF ANESTHETIC Vital Signs in Normal Range: Yes Patient Participated in Evaluation: Yes Respiratory Function Stable: Yes Airway Patent: Yes Cardiovascular Function Stable: Yes Hydration Status Stable: Yes Pain Control Satisfactory: Yes Nausea and Vomiting Control Satisfactory: Yes Mental Status Recovered: Yes Vital Signs: Last Vital Signs Temp 98.3 F 12/31/19 07:10 Pulse 83 12/31/19 07:10 Resp 16 12/31/19 07:10 BP 125/76 12/31/19 07:10 Pulse Ox 98 12/31/19 07:10
[2019-12-31] MEDS ORDERED: Ondansetron 4 MG/2 ML SDV IVPUSH PRN (08:23)
[2019-12-31] MEDS ORDERED: fentaNYL 100 MCG/2 ML SDV IVPUSH PRN (08:23)
== END 2019-12-31 09:10 | disposition home or self-care (01) ==
LOC: JD.SDS 07:01
PROVIDERS: ATTEND Obstetrics & Gynecology
DX: O02.0 Blighted ovum and nonhydatidiform mole (principal); Z3A.08 8 weeks gestation of pregnancy
CPT/HCPCS: 36415; 59820; 84702; 85025; J1885; J2001; J2250; J2405; J2590; J2704; J3010; J7120; 01965

== ENCOUNTER 2020-06-03 22:07 | Emergency (ER) | payer BC ==
--- NOTE | 2020-06-03 22:31 | EDM.PDOC ---
ED HPI GENERAL MEDICAL PROBLEM - General Chief Complaint: Back Pain or Injury Stated Complaint: 17WEEKS PREG WITH UTI Time Seen by Provider: 06/03/20 22:13 Source of Information: Reports: Patient History Limitations: Reports: No Limitations - History of Present Illness INITIAL COMMENTS - FREE TEXT/NARRATIVE: 29-year-old female presents to the emergency department complaints of back pain. Patient states that she has been having issues with low back pain during her . She states that 2 days ago she developed lower abdominal and pelvic cramping and was seen by her BOX BUILDER, Dr. Garcia. He at that time diagnosed her with a UTI and she was started on Macrobid. Patient states that she did not mention any issues with back pain to her provider at that time. She states that she continues to have low back pain however states that her pain is developing in the thoracic area as well. Denies any recent fever, chills, nausea, vomiting or diarrhea. She also denies any vaginal bleeding or spotting. Bilateral Lower Back Pain Score (Numeric/FACES): 9 - Related Data Allergies Allergy/AdvReac Type Severity Reaction Status Date / Time No Known Allergies Allergy Verified 06/03/20 22:16 Home Meds: Home Meds Prenat 115/Iron Fum/Folic/Dss [ 19 Tablet] 1 each PO DAILY 12/27/18 [History] Levothyroxine 75 mcg PO DAILY 12/30/19 [History] Past Medical History HEENT History: Reports: Impaired Vision Other HEENT History: GLASSES, CONTACTS Cardiovascular History: Reports: None Respiratory History: Reports: None Gastrointestinal History: Reports: Other (See Below) Other Gastrointestinal History: Abdominal pain, lactose intolerant Genitourinary History: Reports: None BREAD WRAPPER History: Reports: , Spontaneous Other BREAD WRAPPER History: HPV Musculoskeletal History: Reports: Fracture, Other (See Below) Other Musculoskeletal History: Right ankle fracture Neurological History: Reports: None Psychiatric History: Reports: None Endocrine/Metabolic History: Reports: Hypothyroidism, Obesity/BMI 30+ Hematologic History: Reports: None Immunologic History: Reports: None Oncologic (Cancer) History: Reports: None Dermatologic History: Reports: None Other Dermatologic History: rash d/t cholestasis - Infectious Disease History Infectious Disease History: Reports: None - Past Surgical History HEENT Surgical History: Reports: Oral Surgery, Other (See Below) GI Surgical History: Reports: Cholecystectomy Musculoskeletal Surgical History: Reports: ORIF Other Musculoskeletal Surgeries/Procedures:: ORIF Right fibula fracture Social & Family History - Family History Family Medical History: No Pertinent Family History - Tobacco Use Tobacco Use Status *Q: Never Tobacco User - Caffeine Use Caffeine Use: Reports: None - Recreational Drug Use Recreational Drug Use: No - Living Situation & Occupation Living situation: Reports: Occupation: Employed ED ROS GENERAL - Review of Systems Review Of Systems: Comprehensive ROS is negative, except as noted in HPI. ED EXAM,LOWER BACK PAIN/INJURY - Physical Exam Exam: See Below Exam Limited By: No Limitations General Appearance: Alert, WD/WN, No Apparent Distress Ears: Normal External Exam, Hearing Grossly Normal Nose: Normal Inspection Throat/Mouth: Normal Inspection, Normal Lips, Normal Voice, No Airway Compromise Head: Atraumatic, Normocephalic Neck: Normal Inspection, Supple, Non-Tender, Full Range of Motion Respiratory/Chest: No Respiratory Distress, No Accessory Muscle Use GI/Abdominal: Normal Bowel Sounds, Soft, Non-Tender, No Distention (Female) Exam: Deferred Rectal (Female) Exam: Deferred Back Exam: Normal Inspection, Full Range of Motion, Paraspinal Tenderness. No: CVA Tenderness (L), CVA Tenderness (R), Vertebral Tenderness Extremities: Normal Inspection, Normal Range of Motion, Non-Tender, No Pedal Edema, Normal Capillary Refill Neurological: Alert, Normal Mood/Affect, Normal Gait, Oriented x 3 Psychiatric: Normal Affect, Normal Mood Skin Exam: Warm, Dry, Intact, Normal Color, No Rash Lymphatic: No Adenopathy Course - Vital Signs Text/Narrative:: 29-year-old female with complaints of back pain in the thoracic spine area. She states she has been having issues with lumbar sacral pain throughout her . She developed pelvic cramping and was seen by her provider, Dr. Garcia, in the clinic and diagnosed with a UTI. Patient states she continues to have lumbar sacral pain with radiation into her hips however she has now developed pain in her thoracic area. Upon assessment the patient does not have any spinal tenderness. She does have some paraspinal tenderness however. She denies taking any Tylenol for pain or discomfort. States she has tried using heat to her back. I have ordered a repeat urinalysis as the patient does continue to have low back pain, however I believe that the thoracic paraspinal tenderness is musculoskeletal in origin. Last Recorded V/S: Last Vital Signs Temp 97.1 F 06/03/20 22:13 Pulse 92 06/03/20 22:13 Resp 18 06/03/20 22:13 BP 144/92 H 06/03/20 22:13 Pulse Ox 97 06/03/20 22:13 - Orders/Labs/Meds Orders: Active Orders 24 hr Category Date Time Status CULTURE URINE [RM] Stat Lab 06/03/20 22:28 Received Labs: Laboratory Tests 06/03/20 Range/Units 22:28 Urine Color Yellow (Yellow) Urine Appearance Clear (Clear) Urine pH 7.0 (5.0-8.0) Ur Specific [place] 1.020 (1.005-1.030) Urine Protein Negative (Negative) Urine Glucose (UA) Negative (Negative) Urine Ketones Negative (Negative) Urine Occult Blood Trace-lysed H (Negative) Urine Nitrite Negative (Negative) Urine Bilirubin Negative (Negative) Urine Urobilinogen 0.2 (0.2-1.0) Ur Leukocyte Esterase 1+ H (Negative) Urine RBC 0-5 (0-5) /hpf Urine WBC 0-5 (0-5) /hpf Ur Squamous Epith Cells 0-5 (0-5) /hpf Urine Bacteria Few (FEW) /hpf Urine Mucus Rare (FEW) /hpf Meds: Medications Discontinued Medications Generic Name Dose Route Start Last Admin Trade Name Michelle PRN Reason Stop Dose Admin Acetaminophen 650 mg 06/03/20 22:32 06/03/20 22:35 Acetaminophen 325 Mg Tab PO 06/03/20 22:33 650 mg NOW ONE Administration - Re-Assessments/Exams Free Text/Narrative Re-Assessment/Exam: 06/03/20 23:00 Urinalysis reveal a trace of lysed occult blood, 1+ leuk esterase, 0-5 WBCs. Patient is currently being treated with Macrobid so no further treatment is warranted. Patient will be discharged to home with recommendations that she take Tylenol for the discomfort and follow-up with her BREAD WRAPPER this week in the clinic if the discomfort is not relieved by Tylenol. Departure - Departure Time of Disposition: 23:04 Disposition: Home, Self-Care 01 Condition: Good Clinical Impression: Back pain affecting Qualifiers: Trimester: unspecified trimester Qualified Code(s): O99.891 - Other specified diseases and conditions complicating ; M54.9 - Dorsalgia, unspecified - Discharge Information Instructions: Muscle Strain, [id number] Referrals: Celso Vazquez MD [Primary Care Provider] - Forms: ED Department Discharge Additional Instructions: You were seen in the emergency department today with complaints of mid and lower back pain affecting your . Upon evaluation it appears that this is all the muscles located on both sides of your spine. Urinalysis was repeated and it appears that your urinary tract infection is clearing up so recommend that you continue to take your antibiotics as prescribed until they are gone. May take Tylenol 650 mg every 4 hours for back pain or discomfort. Recommend that you follow-up with your BREAD WRAPPER, Dr. Garcia, this week. Should your condition worsen or change, or if you develop cramping or vaginal bleeding do not hesitate returning to the emergency department. Sepsis Event Note (ED) - Evaluation Sepsis Screening Result: No Definite Risk - Focused Exam Vital Signs: Vital Signs Temp Pulse Resp BP Pulse Ox 06/03/20 22:13 97.1 F 92 18 144/92 H 97 - My Orders Last 24 Hours: My Active Orders 06/03/20 22:28 CULTURE URINE [RM] Stat - Assessment/Plan Last 24 Hours: My Active Orders 06/03/20 22:28 CULTURE URINE [RM] Stat
[2020-06-03] MEDS ORDERED: Acetaminophen 325 MG Tab PO ONE (22:32)
== END 2020-06-03 23:13 | disposition home or self-care (01) ==
LOC: JD.ED 22:07
DX: O99.891 Other specified diseases and conditions complicating pregnancy (principal); M54.5 Low back pain; O99.282 Endocrine, nutritional and metabolic diseases complicating pregnancy, second trimester; E03.9 Hypothyroidism, unspecified; O99.212 Obesity complicating pregnancy, second trimester; Z79.899 Other long term (current) drug therapy; Z3A.17 17 weeks gestation of pregnancy
CPT/HCPCS: 81001; 87086; 99284; A9270; 99282

== ENCOUNTER 2020-10-16 15:51 | Inpatient (IN) | payer BC ==
[2020-10-16] MEDS ORDERED: Sodium Chloride 0.9% 10 ML Syringe FLUSH PRN (16:38)
[2020-10-16] MEDS ORDERED: Ondansetron 4 MG/2 ML SDV IVPUSH PRN (16:38)
[2020-10-16] MEDS ORDERED: Nalbuphine 10 MG/1 ML Vial IVPUSH PRN (16:38)
[2020-10-16] MEDS ORDERED: Oxytocin/Lactated Ringers 10 UNIT/1,000 ML BAG IV SCH ×2 (16:45)
[2020-10-16] MEDS: Lactated Ringers 1,000 ML IV SCH ×2 (17:08→23:34)
--- NOTE | 2020-10-16 17:58 | PCM.LDHP ---
L&D History of Present Illness - General Date of Service: 10/16/20 Admit Problem/Dx: Patient Status Order with Admit Dx/Problem 10/16/20 16:38 Patient Status [ADT] Routine Admission Diagnosis/Problem Admission Diagnosis/Problem Source of Information: Patient History Limitations: Reports: No Limitations - History of Present Illness Introduction:: Monty Monreal is a 29-year-old -1-2-1 female at 36 weeks 0 days (AYAH 11/13/2020) by LMP consistent with 10-week ultrasound who was sent to labor and delivery for induction of labor in the setting of intrahepatic cholestasis of with nonreactive NST that was done in the office. Patient had been reporting that she had decreased movement since last evening and into this morning. She presented for an NST that was nonreactive with a baseline of 130s, moderate variability, 1 15 x 15 accelerations early on and monitoring with no accelerations that occurred after vibroacoustic stimulation and no decelerations. There were irregular contractions. Because of the intrahepatic cholestasis of patient was recommended to be induced at this time as the induction was recommended to occur between 36 weeks 0 days and 37 weeks 0 days. She had originally been scheduled for an induction of labor at 36 weeks 4 days on 10/20/2020. She denies any leaking of fluid or vaginal bleeding. She reports that she is having irregular contractions that have been increasing over the last week. Timing/Duration: Reports: hour(s): (Approximately 18 hours of decreased movement), intermittent (Contractions are not regular) Location, : Reports: Pelvic Quality: Reports: Pressure Severity: Mild Associated Symptoms: Denies: vaginal bleeding, vaginal discharge, vaginal fluid Present Illness Comments:: Monty Monreal is a 29-year-old -1-2-1 female at 36 weeks 0 days (AYAH ) by LMP consistent with 10-week ultrasound who presents for medically indicated induction of labor in the setting of intrahepatic cholestasis of with nonreactive monitoring. Patient has had routine care starting with Dr. Vazquez at 10 weeks gestational age. Her has been complicated by intrahepatic cholestasis of which was initially diagnosed at 30 weeks gestational age when she had a total bile acid level of 12 with normal being less than 10. She had monitoring with weekly biophysical profiles and NSTs. She was seen by Dr. Hogan and was recommended to also start on ursodiol and she did take this medication but it did not help significantly with her itching symptoms. She did not have Tdap vaccine during this . Her care has been with Dr. Vazquez and is complicated by: * Intrahepatic cholestasis of diagnosed at 30 weeks gestational age with a total bile acid of 12. She had been on ursodiol for treatment of the symptoms of cholestasis of but it did not help much. She was having weekly biophysical profiles and weekly NSTs for monitoring during the . * History of cholestasis of in 2019 and was delivered at 36 weeks gestational age. * History of hypothyroidism and is on levothyroxine for supplementation. 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 G1: 12/10/2017, 14 weeks 6 days, SAB G2: 12/28/2018, 36 weeks 3 days, , 5 pounds 8 ounces, female , epidural for anesthesia, induction for cholestasis of G3: 01/18/2020, 6 weeks gestational age, SAB G4: Current labs Blood type: B+ Antibody screen: Negative First trimester hematocrit/hemoglobin: 40.4%/13.5 on 04/17/2020 Platelets: 354 on 04/17/2020 Urine culture: Mixed carlos suggestive of contamination Rubella status: Immune Hepatitis B surface antigen: Negative RPR: Negative Hepatitis C: Negative HIV: Negative Gonorrhea: Negative Chlamydia: Negative Anatomy ultrasound: Normal anatomy, 18th percentile on 10/12/2020, BPP 8/8 on that ultrasound, EFW 2377 g (5 pounds 14 ounces) One hour glucose tolerance test: 160 Second trimester hematocrit/hemoglobin: 37.0%/12.5 on 08/22/2020 Platelets: 271 on 08/22/2020 3-hour glucose tolerance test: Fasting 95, 1 hour 154, 2-hour 127 and 3-hour 93 GBS status: Negative on 10/09/2020 - Related Data Allergies/Adverse Reactions: Allergies Allergy/AdvReac Type Severity Reaction Status Date / Time No Known Allergies Allergy Verified 10/01/20 19:26 Home Medications: Home Meds RX: Levothyroxine 75 mcg PO DAILY 12/30/19 [History] Past Medical History HEENT History: Reports: Impaired Vision Other HEENT History: GLASSES, CONTACTS Cardiovascular History: Reports: None Respiratory History: Reports: None Gastrointestinal History: Reports: Cholelithiasis (History of), Other (See Below) Other Gastrointestinal History: Abdominal pain, lactose intolerant Genitourinary History: Reports: None SENIOR MAINTENANCE MECHANIC History: Reports: , Spontaneous : 4 Para: 1 Other OB/BYN History: HPV Musculoskeletal History: Reports: Fracture, Other (See Below) Other Musculoskeletal History: Right ankle fracture Neurological History: Reports: None Psychiatric History: Reports: None Endocrine/Metabolic History: Reports: Hypothyroidism, Obesity/BMI 30+ Hematologic History: Reports: None Immunologic History: Reports: None Oncologic (Cancer) History: Reports: None Dermatologic History: Reports: None Other Dermatologic History: rash d/t cholestasis - Infectious Disease History Infectious Disease History: Reports: None - Past Surgical History Head Surgeries/Procedures: Reports: None HEENT Surgical History: Reports: Oral Surgery, Other (See Below) Other HEENT Surgeries/Procedures: [place] teeth extraction Cardiovascular Surgical History: Reports: None Respiratory Surgical History: Reports: None GI Surgical History: Reports: Cholecystectomy Female Surgical History: Reports: None Endocrine Surgical History: Reports: None Neurological Surgical History: Reports: None Musculoskeletal Surgical History: Reports: ORIF Other Musculoskeletal Surgeries/Procedures:: ORIF Right fibula fracture Oncologic Surgical History: Reports: None Dermatological Surgical History: Reports: None Social & Family History - Family History Family Medical History: No Pertinent Family History - Tobacco Use Tobacco Use Status *Q: Never Tobacco User Second Hand Smoke Exposure: No - Tobacco Core Measures Tobacco Use/Smoking Within Last 30 Days: No Smokeless Tobacco Use in Last 30 Days: No - Caffeine Use Caffeine Use: Reports: None - Alcohol Use Alcohol Use History: No - Recreational Drug Use Recreational Drug Use: No - Living Situation & Occupation Living situation: Reports: Occupation: Employed H&P Review of Systems - Review of Systems: Review Of Systems: See Below General: Denies: Fever, Chills, Malaise, Weakness, Fatigue HEENT: Reports: Glasses. Denies: Headaches, Post Nasal Drip, Sinus Congestion, Sore Throat, Visual Changes Pulmonary: Denies: Shortness of Breath, Wheezing, Pleuritic Chest Pain, Cough Cardiovascular: Denies: Chest Pain, Palpitations, Dyspnea on Exertion, Orthopnea Gastrointestinal: Denies: Abdominal Pain, Constipation, Diarrhea, Nausea, Vomiting Genitourinary: Denies: Dysuria, Frequency, Burning, Pain, Urgency Musculoskeletal: Reports: Back Pain (And hip pain of ) Skin: Reports: Pruritis. Denies: Rash, Lesions Psychiatric: Denies: Depression, Anxiety L&D Exam - Exam Exam: See Below - Vital Signs Weight: 92.533 kg - OB Specific Contraction Duration (sec): 60-75 Contraction Frequency (min): 3-6 Contraction Intensity: Mild to Moderate Movement: Active Heart Tones: Present Heart Tones per Min: 130 (+15 x 15 accelerations, no decelerations) Heart Rate (FHR) Variability: Moderate (6-25 bpm) Presentation: Vertex Estimated Weight: 5.5-6 pounds by Jose A - Gallagher Score Gallagher Score Cervix Position: Midposition Gallagher Score Consistency: Soft Gallagher Score Effacement: 31-50% (50%) Gallagher Score Dilation: 1-2 cm (2 cm) Gallagher Score 's Station: -3 Gallagher Score Total: 5 - Exam General: Alert, Oriented HEENT: Conjunctiva Clear, EOMI Neck: Supple, Trachea Midline Lungs: Clear to Auscultation, Normal Respiratory Effort Cardiovascular: Regular Rate, Regular Rhythm GI/Abdominal Exam: Soft, Non-Tender, No Distention, Other (Gravid). No: Guard ing, Rigid, Rebound Genitourinary: Normal external exam Extremities: Normal Inspection, No Pedal Edema Skin: Warm, Dry, Intact Psychiatric: Alert, Normal Affect, Normal Mood - Patient Data Lab Results Last 24 hrs: Laboratory Results - last 24 hr 10/16/20 Range/Units 16:53 WBC 12.58 H (3.98-10.04) K/mm3 RBC 4.07 (3.98-5.22) M/mm3 Hgb 12.2 (11.2-15.7) gm/dl Hct 35.1 (34.1-44.9) % MCV 86.2 D (79.4-94.8) fl MCH 30.0 (25.6-32.2) pg MCHC 34.8 (32.2-35.5) g/dl RDW Std Deviation 38.5 (36.4-46.3) fL Plt Count 260 (182-369) K/mm3 MPV 10.5 (9.4-12.3) fl Neut % (Auto) 77.9 H (34.0-71.1) % Lymph % (Auto) 12.8 L (19.3-51.7) % [place] % (Auto) 7.9 (4.7-12.5) % Eos % (Auto) 1.2 (0.7-5.8) Baso % (Auto) 0.2 (0.1-1.2) % Neut # (Auto) 9.80 H (1.56-6.13) K/mm3 Lymph # (Auto) 1.61 (1.18-3.74) K/mm3 [place] # (Auto) 0.99 H (0.24-0.36) K/mm3 Eos # (Auto) 0.15 (0.04-0.36) K/mm3 Baso # (Auto) 0.03 (0.01-0.08) K/mm3 Manual Slide Review Result Diagrams: 10/16/20 16:53 - Problem List (1) Hypothyroidism affecting , antepartum SNOMED Code(s): 888890819 ICD Code: O99.280 - ENDO, NUTRITIONAL AND METAB DISEASES COMP PREG, UNSP TRI; E03.9 - HYPOTHYROIDISM, UNSPECIFIED Status: Acute Current Visit: Yes (2) 36 weeks gestation of SNOMED Code(s): 30969972 ICD Code: Z3A.36 - 36 WEEKS GESTATION OF Status: Acute Current Visit: No (3) Cholestasis during in third trimester SNOMED Code(s): 262725378 ICD Code: O26.613 - LIVER AND BILIARY TRACT DISORD IN , THIRD TR IMESTER; K83.1 - OBSTRUCTION OF BILE DUCT Status: Acute Current Visit: No Problem List Initiated/Reviewed/Updated: Yes Orders Last 24hrs: Active Orders 24 hr Category Date Time Status Patient Status [ADT] Routine ADT 10/16/20 16:38 Active Activity as Tolerated [RC] PFP Care 10/16/20 16:38 Active Communication Order [RC] ASDIRECTED Care 10/16/20 16:38 Active Heart Tones [RC] ASDIRECTED Care 10/16/20 16:38 Active Non Stress Test [RC] PER UNIT ROUTINE Care 10/16/20 16:38 Active Notify Provider [RC] PFP Care 10/16/20 16:38 Active Notify Provider [RC] PRN Care 10/16/20 16:38 Active Peripheral IV Care [RC] . DIRECTED Care 10/16/20 16:38 Active Pump Management, Intrathecal [RC] ASDIRECTED Care 10/16/20 16:41 Active Urinary Catheter Assessment [RC] ASDIRECTED Care 10/16/20 16:38 Active Vital Signs [RC] PER UNIT ROUTINE Care 10/16/20 16:38 Active Regular Diet [DIET] Diet 10/16/20 Dinner Active CORONAVIRUS COVID-19 RAGHAV [MOLEC] Stat Lab 10/16/20 17:56 Ordered RAPID PLASMA REAGIN,RPR [CHEM] Routine Lab 10/16/20 16:53 Received TYPE AND SCREEN [BBK] Routine Lab 10/16/20 16:53 Received Lactated Ringers [Ringers, Lactated] 1,000 ml Med 10/16/20 16:45 Active IV ASDIRECTED Nalbuphine [Nubain] Med 10/16/20 16:38 Active 10 mg IVPUSH Q2H PRN Ondansetron [Zofran] Med 10/16/20 16:38 Active 4 mg IVPUSH Q4H PRN Oxytocin/Lactated Ringers [Pitocin in LR 10 Units/1,000 Med 10/16/20 16:45 Active ML] 10 unit in 1,000 ml IV .CONTINUOUS Oxytocin/Lactated Ringers [Pitocin in LR 10 Units/1,000 Med 10/16/20 16:45 Active ML] 10 unit in 1,000 ml IV TITRATE Sodium Chloride 0.9% [Saline Flush] Med 10/16/20 16:38 Active 10 ml FLUSH ASDIRECTED PRN Electronic Heart Tones Ext w TOCO [WOMSER] Oth 10/16/20 16:38 Ordered Routine Electronic Heart Tones Internal [WOMSER] Per Unit Oth 10/16/20 16:38 Ordered Routine Peripheral IV Insertion Adult [OM.PC] Routine Oth 10/16/20 16:38 Ordered Resuscitation Status Routine Resus Stat 10/16/20 16:38 Ordered Medication Orders Oxytocin/Lactated Ringer's (Pitocin In Lr 10 Units/1,000 Ml) 10 unit in 1,000 mls @ 12 mls/hr IV TITRATE DAVY; Protocol Last Admin: 10/16/20 17:08 Dose: 2 munits/min, 12 mls/hr Documented by: CYRUS Oxytocin/Lactated Ringer's (Pitocin In Lr 10 Units/1,000 Ml) 10 unit in 1,000 mls @ 500 mls/hr IV .CONTINUOUS DAVY Lactated Ringer's (Ringers, Lactated) 1,000 mls @ 100 mls/hr IV ASDIRECTED [facility] Last Admin: 10/16/20 17:08 Dose: 100 mls/hr Documented by: CYRUS Nalbuphine HCl (Nalbuphine 10 Mg/1 Ml Vial) 10 mg IVPUSH Q2H PRN PRN Reason: Pain Ondansetron HCl (Ondansetron 4 Mg/2 Ml Sdv) 4 mg IVPUSH Q4H PRN PRN Reason: Nausea/Vomiting Sodium Chloride (Sodium Chloride 0.9% 10 Ml Syringe) 10 ml FLUSH ASDIRECTED PRN PRN Reason: Keep Vein Open Assessment/Plan Comment:: Monty Monreal is a 29-year-old -1-2-1 female at 36 weeks 0 days with history of intrahepatic cholestasis of that was diagnosed at 30 weeks gestational age and nonreactive NST that was done in the office earlier today undergoing induction of labor due to the nonreactive NST, complicated by intrahepatic cholestasis of and hypothyroidism Patient was placed in dorsal lithotomy position with pelvis elevated on bedpan. A speculum was placed and the cervix was visualized. An 18 [place] Clark catheter was attempted to be passed through the cervical canal after visualization of the cervix. The Clark catheter balloon was inflated with 60 mL of sterile saline and on gentle traction the Clark bulb came out spontaneously. It was felt that it had not passed through the internal os and a second attempt was made. This again did not pass all the way through the internal os and decision was made to discontinue use of the Clark catheter and use only Pitocin at this time. Refer to observation for elective induction of labor Start Pitocin for induction of labor Continuous monitoring Place IV and have Lactated Ringer's at 125 ml/hr May have small amounts of regular diet Activity as tolerated May have epidural as desired Plans to breast-feed for several days after delivery then switch to using bottlefeeding Anticipate vaginal delivery unless otherwise indicated Ashvin Garcia MD 6:46 PM 10/16/2020
--- NOTE | 2020-10-16 21:19 | PCM.PNLD ---
Labor Progress Note - VS & Meds Vital Signs: Last Vital Signs Temp 36.2 C 10/16/20 16:38 Pulse 97 10/16/20 16:38 Resp 16 10/16/20 16:38 BP 134/81 10/16/20 16:38 Pulse Ox 98 10/16/20 16:38 Active Medications: Current Medications Oxytocin/Lactated Ringer's (Pitocin In Lr 10 Units/1,000 Ml) 10 unit in 1,000 mls @ 12 mls/hr IV TITRATE DAVY; Protocol Last Titration: 10/16/20 20:22 Dose: 13 munits/min, 78 mls/hr Documented by: Oxytocin/Lactated Ringer's (Pitocin In Lr 10 Units/1,000 Ml) 10 unit in 1,000 mls @ 500 mls/hr IV .CONTINUOUS DAVY Lactated Ringer's (Ringers, Lactated) 1,000 mls @ 100 mls/hr IV ASDIRECTED DAVY Last Admin: 10/16/20 17:08 Dose: 100 mls/hr Documented by: Nalbuphine HCl (Nalbuphine 10 Mg/1 Ml Vial) 10 mg IVPUSH Q2H PRN PRN Reason: Pain Ondansetron HCl (Ondansetron 4 Mg/2 Ml Sdv) 4 mg IVPUSH Q4H PRN PRN Reason: Nausea/Vomiting Sodium Chloride (Sodium Chloride 0.9% 10 Ml Syringe) 10 ml FLUSH ASDIRECTED PRN PRN Reason: Keep Vein Open - Uterine Contractions Contraction Frequency (min): 2-4 Contraction Duration (sec): 60-75 Contraction Intensity: Moderate to Strong Uterine Resting Tone: Soft - Monitoring Monitor Mode: Doppler/Auscultation Heart Rate (FHR) Baseline: 130 Heart Rate (FHR) Per Doppler: 130 Heart Rate (FHR) Variability: Moderate (6-25 bpm) Accelerations: Present, 15x15 Decelerations: None Strip Review: Category I - Vaginal Exam Dilation (cm): 3 Effacement (Percent): 70 Station: -2 Cervical Position: Anterior Sterile Vaginal Exam Performed By: Ashvin Garcia Vaginal Exam Comment: Artificial rupture membranes performed with [place] with return of clear fluid. Mother and tolerated procedure without difficulty. - Labor Progress (Free Text) Labor Progress: Monty Monreal is a 29-year-old -1-2-1 female at 36 weeks 0 days with history of intrahepatic cholestasis of that was diagnosed at 30 weeks gestational age and nonreactive NST that was done in the office earlier today undergoing induction of labor due to the nonreactive NST, complicated by intrahepatic cholestasis of and hypothyroidism * Patient underwent artificial rupture membranes with [place] with return of moderate amount of clear fluid. Mother and infant tolerated procedure without difficulty. * Continue Pitocin for augmentation of labor * Continuous monitoring due to intrahepatic cholestasis of * Routine vitals * Patient may have small amounts of regular diet as tolerated * Patient may have epidural or anesthesia as desired * Anticipate vaginal delivery unless otherwise indicated Ashvin Garcia MD 9:20 PM 10/16/2020
[2020-10-16] MEDS ORDERED: Bupivacaine/fentaNYL/NS 100 ML Bag EPIDUR PRN (23:18)
[2020-10-16] MEDS ORDERED: fentaNYL 100 MCG/2 ML SDV EPIDUR PRN (23:18)
[2020-10-16] MEDS ORDERED: diphenhydrAMINE 50 MG/ML SDV IVPUSH PRN (23:18)
[2020-10-16] MEDS ORDERED: ePHEDrine 50 MG/ML SDV IVPUSH PRN (23:18)
--- NOTE | 2020-10-16 23:20 | PCM.PREANE ---
Preanesthetic Assessment - Procedure Proposed Procedure: Continuous labor epidural - Anesthesia/Transfusion/Family Hx Anesthesia History: Prior Anesthesia Without Reaction Transfusion History: No Prior Transfusion(s) Intubation History: Unknown - Review of Systems General: No Symptoms Pulmonary: No Symptoms Cardiovascular: No Symptoms Gastrointestinal: No Symptoms Neurological: No Symptoms Other: Reports: None - Physical Assessment Vital Signs: Last Vital Signs Temp 97.1 F 10/16/20 16:38 Pulse 97 10/16/20 16:38 Resp 16 10/16/20 16:38 BP 134/81 10/16/20 16:38 Pulse Ox 98 10/16/20 16:38 Height: 1.63 m Weight: 92.533 kg ASA Class: 2 Mental Status: Alert & Oriented x3 Airway Class: Mallampati = 1 Dentition: Reports: Normal Dentition Thyro-Mental Finger Breadths: 3 Mouth Opening Finger Breadths: 3 ROM/Head Extension: Full Lungs: Clear to Auscultation, Normal Respiratory Effort Cardiovascular: Regular Rate, Regular Rhythm - Lab Values: Laboratory Last Values WBC 12.58 K/mm3 (3.98-10.04) H 10/16/20 16:53 RBC 4.07 M/mm3 (3.98-5.22) 10/16/20 16:53 Hgb 12.2 gm/dl (11.2-15.7) 10/16/20 16:53 Hct 35.1 % (34.1-44.9) 10/16/20 16:53 MCV 86.2 fl (79.4-94.8) D 10/16/20 16:53 MCH 30.0 pg (25.6-32.2) 10/16/20 16:53 MCHC 34.8 g/dl (32.2-35.5) 10/16/20 16:53 RDW Std Deviation 38.5 fL (36.4-46.3) 10/16/20 16:53 Plt Count 260 K/mm3 (182-369) 10/16/20 16:53 MPV 10.5 fl (9.4-12.3) 10/16/20 16:53 Neut % (Auto) 77.9 % (34.0-71.1) H 10/16/20 16:53 Lymph % (Auto) 12.8 % (19.3-51.7) L 10/16/20 16:53 [place] % (Auto) 7.9 % (4.7-12.5) 10/16/20 16:53 Eos % (Auto) 1.2 (0.7-5.8) 10/16/20 16:53 Baso % (Auto) 0.2 % (0.1-1.2) 10/16/20 16:53 Neut # (Auto) 9.80 K/mm3 (1.56-6.13) H 10/16/20 16:53 Lymph # (Auto) 1.61 K/mm3 (1.18-3.74) 10/16/20 16:53 [place] # (Auto) 0.99 K/mm3 (0.24-0.36) H 10/16/20 16:53 Eos # (Auto) 0.15 K/mm3 (0.04-0.36) 10/16/20 16:53 Baso # (Auto) 0.03 K/mm3 (0.01-0.08) 10/16/20 16:53 Manual Slide Review 10/16/20 16:53 RPR Non-reactive (NONREACTIVE) 10/16/20 16:53 SARS-CoV-2 RNA (RAGHAV) Negative (NEGATIVE) 10/16/20 16:05 Blood Type B POSITIVE 10/16/20 16:53 Gel Antibody Screen Negative 10/16/20 16:53 - Allergies Allergies/Adverse Reactions: Allergies Allergy/AdvReac Type Severity Reaction Status Date / Time No Known Allergies Allergy Verified 10/01/20 19:26 - Acknowledgements Anesthesia Type Planned: Epidural Pt an Appropriate Candidate for the Planned Anesthesia: Yes Alternatives and Risks of Anesthesia Discussed w Pt/Guardian: Yes Pt/Guardian Understands and Agrees with Anesthesia Plan: Yes PreAnesthesia Questionnaire HEENT History: Reports: Impaired Vision Other HEENT History: GLASSES, CONTACTS Cardiovascular History: Reports: None Respiratory History: Reports: None Gastrointestinal History: Reports: Cholelithiasis (History of), Other (See Below) Other Gastrointestinal History: Abdominal pain, lactose intolerant Genitourinary History: Reports: None PRODUCTION DESIGNER History: Reports: , Spontaneous Other OB/BYN History: HPV Musculoskeletal History: Reports: Fracture, Other (See Below) Other Musculoskeletal History: Right ankle fracture Neurological History: Reports: None Psychiatric History: Reports: None Endocrine/Metabolic History: Reports: Hypothyroidism, Obesity/BMI 30+ Hematologic History: Reports: None Immunologic History: Reports: None Oncologic (Cancer) History: Reports: None Dermatologic History: Reports: None Other Dermatologic History: rash d/t cholestasis - Infectious Disease History Infectious Disease History: Reports: None - Past Surgical History Head Surgeries/Procedures: Reports: None HEENT Surgical History: Reports: Oral Surgery, Other (See Below) Other HEENT Surgeries/Procedures: [place] teeth extraction Cardiovascular Surgical History: Reports: None Respiratory Surgical History: Reports: None GI Surgical History: Reports: Cholecystectomy Female Surgical History: Reports: None Endocrine Surgical History: Reports: None Neurological Surgical History: Reports: None Musculoskeletal Surgical History: Reports: ORIF Other Musculoskeletal Surgeries/Procedures:: ORIF Right fibula fracture Oncologic Surgical History: Reports: None Dermatological Surgical History: Reports: None - SUBSTANCE USE Tobacco Use Status *Q: Never Tobacco User Second Hand Smoke Exposure: No Recreational Drug Use History: No - HOME MEDS Home Medications: Home Meds Levothyroxine 75 mcg PO DAILY 12/30/19 [History] - CURRENT (IN HOUSE) MEDS Current Meds: Current Medications Diphenhydramine HCl (Diphenhydramine 50 Mg/Ml Sdv) 25 mg IVPUSH Q6H PRN PRN Reason: pruritis Oxytocin/Lactated Ringer's (Pitocin In Lr 10 Units/1,000 Ml) 10 unit in 1,000 mls @ 12 mls/hr IV TITRATE DAVY; Protocol Last Titration: 10/16/20 22:10 Dose: 11 munits/min, 66 mls/hr Documented by: Oxytocin/Lactated Ringer's (Pitocin In Lr 10 Units/1,000 Ml) 10 unit in 1,000 mls @ 500 mls/hr IV .CONTINUOUS DAVY Lactated Ringer's (Ringers, Lactated) 1,000 mls @ 100 mls/hr IV ASDIRECTED DAVY Last Admin: 10/16/20 17:08 Dose: 100 mls/hr Documented by: Nalbuphine HCl (Nalbuphine 10 Mg/1 Ml Vial) 10 mg IVPUSH Q2H PRN PRN Reason: Pain Ondansetron HCl (Ondansetron 4 Mg/2 Ml Sdv) 4 mg IVPUSH Q4H PRN PRN Reason: Nausea/Vomiting Sodium Chloride (Sodium Chloride 0.9% 10 Ml Syringe) 10 ml FLUSH ASDIRECTED PRN PRN Reason: Keep Vein Open
[2020-10-17] MEDS ORDERED: Lidocaine 1.5% with EPINEPHrine 1:200,000 5 ML Amp ONE
--- NOTE | 2020-10-17 03:23 | PCM.DEL ---
L & D Note - General Info Date of Service: 10/17/20 Mother's Due Date: 11/13/20 - Delivery Note Labor: Augmented by ARM, Induced by Oxytocin Delivery Outcome: Livebirth Delivery Method: Spontaneous Vaginal Delivery-Single Presentation: Right Occiput Anterior (HILARIA) Nuchal Cord: None Prep: Povidone-Iodine (Betadine Anesthesia Type: Epidural Amniotic Fluid Description: Clear Episiotomy Type: None Laceration: Periurethral (abrasion, hemostatic and not repaired) Placenta: Intact, Spontaneous Cord: 3 Vessels Estimated Blood Loss: 100 Resuscitation Needed: No : Bulb Syringe, Stimulated, Warmed, [place] Used Score 1 min: 8 Score 5 min: 9 Second Stage Interventions: Reports: Pushing Effectively, Pushing, Stirrups/Leg Supports Delivery Comments (Free Text/Narrative):: Stage I: Monty Monreal was admitted for medically indicated induction of labor in the setting of nonreactive NST in the office with complicated by intrahepatic cholestasis of . On admission her cervix was dilated to 1 cm. She was GBS negative. She was started on Pitocin for induction of labor. She had attempted placement of an 18 [place] Clark catheter transcervically with speculum and ring forceps. With initial placement and subsequent attempt the catheter only passed through the external cervical os and not through the internal cervical os. She was continued on Pitocin for induction of labor. She had artificial rupture membranes with return of moderate amount of clear fluid. She was given an epidural for anesthesia. She progressed to complete and pushing. Stage II: On 10/17/2020 she had a normal vaginal delivery of a live female infant at 02:49. Apgars of 8 & 9. Weight was unavailable at time of note. There was a single cord wrapped around the infant's left ankle at time of delivery that was reduced without difficulty after delivery of the infant. was delivered in HILARIA position. The cord was doubly clamped and cut by myself after approximately 60 seconds after. was placed on mother's abdomen. Stage III: She had a spontaneous delivery of an intact placenta in Jen presentation. Three vessel cord. She was given pitocin and fundal massage. She had a small periurethral abrasion that was hemostatic and not repaired. Mom and baby were stable to recovery. EBL of 100 mL. Ashvin Garcia MD 3:20 AM 10/17/2020 Induction Criteria - Gallagher Score Gallagher Score Dilation: 1-2 cm Gallagher Score Effacement: 40-50% Gallagher Score Infant's Station: -3 Gallagher Score Consistency: Soft Gallagher Score Cervix Position: Midposition Gallagher Score Total: 5 Gallagher Score Presenting Part: Reports: Cephalic - Induction Gestational Age >/= 39 wks: No Medical Indication: Nonreactive NST in the setting of intrahepatic cholestasis of that had been previously diagnosed at 30 weeks gestational age Estimated Pelvis: Reports: Adequate Reassuring Monitoring Strip: Yes Absence of Tachy Systole: Yes - Augmentation Estimated Pelvis: Reports: Adequate Weight Estimated:: Reports: AGA Reassuring Monitoring Strip: Yes Absence of Tachy Systole: Yes - General Info Date of Service: 10/17/20 - Patient Data Vitals - Most Recent: Last Vital Signs Temp 36.2 C 10/16/20 16:38 Pulse 97 10/16/20 16:38 Resp 16 10/16/20 16:38 BP 134/81 10/16/20 16:38 Pulse Ox 98 10/16/20 16:38 Weight - Most Recent: 92.533 kg Lab Results Last 24 Hours: Laboratory Results - last 24 hr 10/16/20 10/16/20 10/16/20 Range/Units 16:05 16:53 16:53 WBC 12.58 H (3.98-10.04) K/mm3 RBC 4.07 (3.98-5.22) M/mm3 Hgb 12.2 (11.2-15.7) gm/dl Hct 35.1 (34.1-44.9) % MCV 86.2 D (79.4-94.8) fl MCH 30.0 (25.6-32.2) pg MCHC 34.8 (32.2-35.5) g/dl RDW Std Deviation 38.5 (36.4-46.3) fL Plt Count 260 (182-369) K/mm3 MPV 10.5 (9.4-12.3) fl Neut % (Auto) 77.9 H (34.0-71.1) % Lymph % (Auto) 12.8 L (19.3-51.7) % [place] % (Auto) 7.9 (4.7-12.5) % Eos % (Auto) 1.2 (0.7-5.8) Baso % (Auto) 0.2 (0.1-1.2) % Neut # (Auto) 9.80 H (1.56-6.13) K/mm3 Lymph # (Auto) 1.61 (1.18-3.74) K/mm3 [place] # (Auto) 0.99 H (0.24-0.36) K/mm3 Eos # (Auto) 0.15 (0.04-0.36) K/mm3 Baso # (Auto) 0.03 (0.01-0.08) K/mm3 Manual Slide Review RPR Non-reactive (NONREACTIVE) SARS-CoV-2 RNA (RAGHAV) Negative (NEGATIVE) Blood Type Gel Antibody Screen 10/16/20 Range/Units 16:53 WBC (3.98-10.04) K/mm3 RBC (3.98-5.22) M/mm3 Hgb (11.2-15.7) gm/dl Hct (34.1-44.9) % MCV (79.4-94.8) fl MCH (25.6-32.2) pg MCHC (32.2-35.5) g/dl RDW Std Deviation (36.4-46.3) fL Plt Count (182-369) K/mm3 MPV (9.4-12.3) fl Neut % (Auto) (34.0-71.1) % Lymph % (Auto) (19.3-51.7) % [place] % (Auto) (4.7-12.5) % Eos % (Auto) (0.7-5.8) Baso % (Auto) (0.1-1.2) % Neut # (Auto) (1.56-6.13) K/mm3 Lymph # (Auto) (1.18-3.74) K/mm3 [place] # (Auto) (0.24-0.36) K/mm3 Eos # (Auto) (0.04-0.36) K/mm3 Baso # (Auto) (0.01-0.08) K/mm3 Manual Slide Review RPR (NONREACTIVE) SARS-CoV-2 RNA (RAGHAV) (NEGATIVE) Blood Type B POSITIVE Gel Antibody Screen Negative Med Orders - Current: Current Medications Diphenhydramine HCl (Diphenhydramine 50 Mg/Ml Sdv) 25 mg IVPUSH Q6H PRN PRN Reason: pruritis Ephedrine Sulfate (Ephedrine 50 Mg/Ml Sdv) 5 mg IVPUSH ASDIRECTED PRN PRN Reason: Hypotension Fentanyl (Fentanyl 100 Mcg/2 Ml Sdv) 100 mcg EPIDUR Q3H PRN PRN Reason: Pain Last Admin: 10/16/20 23:36 Dose: 100 mcg Documented by: Fentanyl/Bupivacaine HCl (Bupivacaine/Fentanyl/Ns 100 Ml Bag) 100 ml EPIDUR ASDIRECTED PRN PRN Reason: Pain Last Admin: 10/16/20 23:36 Dose: 100 ml Documented by: Oxytocin/Lactated Ringer's (Pitocin In Lr 10 Units/1,000 Ml) 10 unit in 1,000 mls @ 12 mls/hr IV TITRATE DAVY; Protocol Last Titration: 10/17/20 01:15 Dose: 14 munits/min, 84 mls/hr Documented by: Oxytocin/Lactated Ringer's (Pitocin In Lr 10 Units/1,000 Ml) 10 unit in 1,000 mls @ 500 mls/hr IV .CONTINUOUS DAVY Lactated Ringer's (Ringers, Lactated) 1,000 mls @ 100 mls/hr IV ASDIRECTED DAVY Last Admin: 10/16/20 23:34 Dose: 100 mls/hr Documented by: Nalbuphine HCl (Nalbuphine 10 Mg/1 Ml Vial) 10 mg IVPUSH Q2H PRN PRN Reason: Pain Ondansetron HCl (Ondansetron 4 Mg/2 Ml Sdv) 4 mg IVPUSH Q4H PRN PRN Reason: Nausea/Vomiting Sodium Chloride (Sodium Chloride 0.9% 10 Ml Syringe) 10 ml FLUSH ASDIRECTED PRN PRN Reason: Keep Vein Open - Exam Urinary Catheter Total Time: 0Days 0Hours - Problem List & Annotations (1) Hypothyroidism affecting , antepartum SNOMED Code(s): 847773353 Code(s): O99.280 - ENDO, NUTRITIONAL AND METAB DISEASES COMP PREG, UNSP TRI; E03.9 - HYPOTHYROIDISM, UNSPECIFIED Status: Acute Current Visit: Yes (2) 36 weeks gestation of SNOMED Code(s): 85890144 Code(s): Z3A.36 - 36 WEEKS GESTATION OF Status: Acute Current Visit: No (3) Cholestasis during in third trimester SNOMED Code(s): 212576762 Code(s): O26.613 - LIVER AND BILIARY TRACT DISORD IN , THIRD TRIMESTER; K83.1 - OBSTRUCTION OF BILE DUCT Status: Acute Current Visit: No (4) Vaginal delivery SNOMED Code(s): 944553364 Code(s): O80 - ENCOUNTER FOR FULL-TERM UNCOMPLICATED DELIVERY Status: Acute Current Visit: No - Problem List Review Problem List Initiated/Reviewed/Updated: Yes - My Orders Last 24 Hours: My Active Orders 10/16/20 16:38 Patient Status [ADT] Routine Activity as Tolerated [RC] PFP Communication Order [RC] ASDIRECTED Heart Tones [RC] ASDIRECTED Non Stress Test [RC] PER UNIT ROUTINE Notify Provider [RC] PFP Notify Provider [RC] PRN Peripheral IV Care [RC] Q4HR Urinary Catheter Assessment [RC] ASDIRECTED Vital Signs [RC] PER UNIT ROUTINE Nalbuphine [Nubain] 10 mg IVPUSH Q2H PRN Ondansetron [Zofran] 4 mg IVPUSH Q4H PRN Sodium Chloride 0.9% [Saline Flush] 10 ml FLUSH ASDIRECTED PRN Electronic Heart Tones Ext w TOCO [WOMSER] Routine Electronic Heart Tones Internal [WOMSER] Per Unit Routine Peripheral IV Insertion Adult [OM.PC] Routine Resuscitation Status Routine 10/16/20 16:41 Pump Management, Intrathecal [RC] ASDIRECTED 10/16/20 16:45 Lactated Ringers [Ringers, Lactated] 1,000 ml IV ASDIRECTED Oxytocin/Lactated Ringers [Pitocin in LR 10 Units/1,000 ML] 10 unit in 1,000 ml IV .CONTINUOUS Oxytocin/Lactated Ringers [Pitocin in LR 10 Units/1,000 ML] 10 unit in 1,000 ml IV TITRATE 10/16/20 Dinner Regular Diet [DIET] 10/17/20 03:08 Patient Status Manage Transfer [TRANSFER] Routine - Plan Plan:: Monty Monreal is a 29-year-old now -2-2-2 female status post , PPD #0, complicated by intrahepatic cholestasis of , delivery at 36 weeks gestational age due to nonreactive NST in the setting of intrahepatic cholestasis of and hypothyroidism * Admit to inpatient following spontaneous vaginal delivery after induction of labor in the setting of a nonreactive NST with history of intrahepatic cholestasis of * Continue Pitocin per unit protocol following delivery of placenta and lactated Ringer's until tolerating regular diet * Regular diet * Vitals per unit routine * Ibuprofen and Tylenol for pain control * Assist with breast and bottlefeeding as needed * Continue to monitor lochia * Anticipate discharge home on day #1 if is stable for discharge at that time Ashvin Garica MD 3:20 AM 10/17/2020
[2020-10-17] MEDS ORDERED: Docusate Sodium 100 MG Cap PO PRN (04:35)
[2020-10-17] MEDS ORDERED: Benzocaine/Menthol 20%-0.5% Spray 56 GM Canister TOP PRN (04:35)
[2020-10-17] MEDS ORDERED: Hydrocortisone Acetate 25 MG Supp RECTAL PRN (04:35)
[2020-10-17] MEDS ORDERED: Witch Hazel Medicated Pads 40/Jar TOP PRN (04:35)
[2020-10-17] MEDS ORDERED: Acetaminophen 325 MG Tab PO PRN (04:35)
[2020-10-17] MEDS ORDERED: Oxytocin/Lactated Ringers 10 UNIT/1,000 ML BAG IV SCH (04:35)
[2020-10-17] MEDS ORDERED: Magnesium Hydroxide 400 MG/5 ML Susp 30 ML Cup PO PRN (04:35)
[2020-10-17] MEDS: Levothyroxine 75 MCG Tab PO SCH (07:31)
[2020-10-17] MEDS: Ibuprofen 600 MG Tab PO PRN ×2 (10:15→17:24)
[2020-10-17] MEDS: Prenatal Multivitamin with Calcium/Folic Acid/Iron Tab PO SCH (10:40)
--- NOTE | 2020-10-17 10:41 | PCM48HPAN ---
Post Anesthesia Note - EVALUATION WITHIN 48HRS OF ANESTHETIC Vital Signs in Normal Range: Yes Patient Participated in Evaluation: Yes Respiratory Function Stable: Yes Airway Patent: Yes Cardiovascular Function Stable: Yes Hydration Status Stable: Yes Pain Control Satisfactory: Yes Nausea and Vomiting Control Satisfactory: Yes Mental Status Recovered: Yes Vital Signs: Last Vital Signs Temp 98.4 F 10/17/20 07:37 Pulse 79 10/17/20 07:37 Resp 20 10/17/20 07:37 BP 124/76 10/17/20 07:37 Pulse Ox 97 10/17/20 07:37 rests- no complaints
[2020-10-18] MEDS: Ibuprofen 600 MG Tab PO PRN ×3 (00:32→20:52)
--- NOTE | 2020-10-18 06:16 | PCM.SN.2 ---
- Free Text/Narrative Note: Post Progress Note PPD #1 Subjective: Doing well overall. Ambulating without difficulty. Lochia minimal. Voiding without difficulty. Tolerating regular diet without nausea or vomiting. Reports that she is having some mild low back pain as well as abdominal cramping. Pain controlled with oral medications. Bottlefeeding with minimal difficulty. Not having any milk production at this time. Reports that her itching of her skin has improved since delivery. She does still have some itching but it is less than what it was prior to delivery Objective: Vitals: Vital Signs - 24 hr 10/17/20 10/17/20 10/17/20 07:37 15:47 19:50 Temperature 36.9 C 37.1 C 37.0 C Pulse, 79 74 79 Peripheral Respiratory 20 16 14 Rate Blood Pressure 124/76 118/73 134/73 O2 Sat by Pulse 97 96 99 Oximetry 10/18/20 03:40 Temperature 36.7 C Pulse, 75 Peripheral Respiratory 14 Rate Blood Pressure 120/74 O2 Sat by Pulse 97 Oximetry Physical Exam General: Alert and oriented, no acute distress Lungs: Clear to auscultation bilaterally Heart: Regular rate and rhythm Abdomen: Soft, minimal appropriate tenderness, non-distended, fundus midline, nontender, and 1 fingerbreadth below the umbilicus Extremities: No edema in bilateral lower extremities, no calf tenderness bilaterally ASSESSMENT: 29-year-old female -2-2-2 s/p normal vaginal delivery PPD #1, complicated by intrahepatic cholestasis of with nonreactive NST prior to induction and hypothyroidism PLAN: Doing well Bottlefeeding with minimal difficulty. Assist as needed. Lochia minimal. Continue to monitor for appropriate lochia. Continue levothyroxine for hypothyroidism Continue routine care Anticipate discharge home tomorrow due to likely being monitored for additional time due to prematurity Ashvin Garcia MD 6:15 AM 10/18/2020
[2020-10-18] MEDS: Levothyroxine 75 MCG Tab PO SCH (07:27)
[2020-10-18] MEDS: Prenatal Multivitamin with Calcium/Folic Acid/Iron Tab PO SCH (11:44)
[2020-10-19] MEDS: Levothyroxine 75 MCG Tab PO SCH (06:25)
--- NOTE | 2020-10-19 08:11 | PCM.DCSUM1 ---
Discharge Summary - Hospital Course Diagnosis: Stroke: No - Discharge Data Discharge Date: 10/19/20 Discharge Disposition: Home, Self-Care 01 Condition: Good - Referral to Home Health Primary Care Physician: Ashvin Garcia MD - Patient Summary/Data Hospital Course: Stage I: Monty Monreal was admitted for medically indicated induction of labor in the setting of nonreactive NST in the office with complicated by intrahepatic cholestasis of . On admission her cervix was dilated to 1 cm. She was GBS negative. She was started on Pitocin for induction of labor. She had attempted placement of an 18 [place] Clark catheter transcervically with speculum and ring forceps. With initial placement and subsequent attempt the catheter only passed through the external cervical os and not through the internal cervical os. She was continued on Pitocin for induction of labor. She had artificial rupture membranes with return of moderate amount of clear fluid. She was given an epidural for anesthesia. She progressed to complete and pushing. Stage II: On 10/17/2020 she had a normal vaginal delivery of a live female infant at 02:49. Apgars of 8 & 9. Weight was unavailable at time of note. There was a single cord wrapped around the infant's left ankle at time of delivery that was reduced without difficulty after delivery of the infant. Infant was delivered in HILARIA position. The cord was doubly clamped and cut by myself after approximately 60 seconds after. was placed on mother's abdomen. Stage III: She had a spontaneous delivery of an intact placenta in Jen presentation. Three vessel cord. She was given pitocin and fundal massage. She had a small periurethral abrasion that was hemostatic and not repaired. Mom and baby were stable to recovery. EBL of 100 mL. - Patient Instructions Diet: Usual Diet as Tolerated Activity: No Strenuous Activities Driving: May Drive Today Showering/Bathing: May Shower Notify Provider of: Fever, Increased Pain, Swelling and Redness, Drainage, Nausea and/or Vomiting - Discharge Plan *PRESCRIPTION DRUG MONITORING PROGRAM REVIEWED*: No *COPY OF PRESCRIPTION DRUG MONITORING REPORT IN PATIENT RAMYA: No Home Medications: Home Meds Levothyroxine 75 mcg PO DAILY 12/30/19 [History] Referrals: Celso Vazquez MD [Physician] - (2 weeks) - Discharge Summary/Plan Comment DC Time >30 min.: No - Patient Data Vitals - Most Recent: Last Vital Signs Temp 36.6 C 10/19/20 03:31 Pulse 69 10/19/20 03:31 Resp 14 10/19/20 03:31 BP 112/64 10/19/20 03:31 Pulse Ox 97 10/19/20 03:31 Weight - Most Recent: 92.533 kg Med Orders - Current: Current Medications Acetaminophen (Acetaminophen 325 Mg Tab) 650 mg PO Q6H PRN PRN Reason: mild pain or fever Benzocaine/Menthol (Benzocaine/Menthol 20%-0.5% [place] 56 Gm Canister) 0 gm TOP ASDIRECTED PRN PRN Reason: Perineal Comfort Measure Last Admin: 10/17/20 04:50 Dose: 1 canister Documented by: Docusate Sodium (Docusate Sodium 100 Mg Cap) 100 mg PO BID PRN PRN Reason: Constipation Last Admin: 10/17/20 10:14 Dose: 100 mg Documented by: Hydrocortisone Acetate (Hydrocortisone Acetate 25 Mg Supp) 25 mg RECTAL BID PRN PRN Reason: Hemorrhoid pain Oxytocin/Lactated Ringer's (Pitocin In Lr 10 Units/1,000 Ml) 10 unit in 1,000 mls @ 100 mls/hr IV TITRATE DAVY; Protocol Ibuprofen (Ibuprofen 600 Mg Tab) 600 mg PO Q6H PRN PRN Reason: Mild pain or fever Last Admin: 10/18/20 20:52 Dose: 600 mg Documented by: Levothyroxine Sodium (Levothyroxine 75 Mcg Tab) 75 mcg PO ACBREAKFAST DAVY Last Admin: 10/19/20 06:25 Dose: 75 mcg Documented by: Magnesium Hydroxide (Magnesium Hydroxide 400 Mg/5 Ml Susp 30 Ml Cup) 30 ml PO BEDTIME PRN PRN Reason: Constipation Prenat Multivit/Turner/Iron/Folic Ac ( Multivitamin With Calcium/Folic Acid/Iron Tab) 1 each PO DAILY DAVY Last Admin: 10/18/20 11:44 Dose: Not Given Documented by: Janet Ramirez (Janet Ramirez Medicated Pads 40/Jar) 1 pad TOP ASDIRECTED PRN PRN Reason: Perineal Comfort Measure Last Admin: 10/17/20 04:50 Dose: 1 tub Documented by: Discontinued Medications Diphenhydramine HCl (Diphenhydramine 50 Mg/Ml Sdv) 25 mg IVPUSH Q6H PRN PRN Reason: pruritis Ephedrine Sulfate (Ephedrine 50 Mg/Ml Sdv) 5 mg IVPUSH ASDIRECTED PRN PRN Reason: Hypotension Fentanyl (Fentanyl 100 Mcg/2 Ml Sdv) 100 mcg EPIDUR Q3H PRN PRN Reason: Pain Last Admin: 10/16/20 23:36 Dose: 100 mcg Documented by: Fentanyl/Bupivacaine HCl (Bupivacaine/Fentanyl/Ns 100 Ml Bag) 100 ml EPIDUR ASDIRECTED PRN PRN Reason: Pain Last Admin: 10/16/20 23:36 Dose: 100 ml Documented by: Oxytocin/Lactated Ringer's (Pitocin In Lr 10 Units/1,000 Ml) 10 unit in 1,000 mls @ 12 mls/hr IV TITRATE DAVY; Protocol Last Titration: 10/17/20 01:15 Dose: 14 munits/min, 84 mls/hr Documented by: Oxytocin/Lactated Ringer's (Pitocin In Lr 10 Units/1,000 Ml) 10 unit in 1,000 mls @ 500 mls/hr IV .CONTINUOUS DAVY Lactated Ringer's (Ringers, Lactated) 1,000 mls @ 100 mls/hr IV ASDIRECTED DAYV Last Admin: 10/16/20 23:34 Dose: 100 mls/hr Documented by: Lidocaine/Epinephrine (Lidocaine 1.5% With Epinephrine 1:200,000 5 Ml Amp) 5 ml .ROUTE .[facility] ONE Stop: 10/17/20 00:01 Nalbuphine HCl (Nalbuphine 10 Mg/1 Ml Vial) 10 mg IVPUSH Q2H PRN PRN Reason: Pain Ondansetron HCl (Ondansetron 4 Mg/2 Ml Sdv) 4 mg IVPUSH Q4H PRN PRN Reason: Nausea/Vomiting Sodium Chloride (Sodium Chloride 0.9% 10 Ml Syringe) 10 ml FLUSH ASDIRECTED PRN PRN Reason: Keep Vein Open
== END 2020-10-19 11:22 | disposition home or self-care (01) | DRG 560 ==
LOC: JD.OB 15:51 → JD.OBCHECK 15:51 → JD.OB 16:38 → OBSVTOIN 10-17 02:49 → JD.OB 10-17 02:50
PROVIDERS: ADMIT Obstetrics & Gynecology; ATTEND Obstetrics & Gynecology
PROC: 10E0XZZ Delivery of Products of Conception, External Approach (ICD-10-PCS; principal; 2020-10-17)
PROC: 10907ZC Drainage of Amniotic Fluid, Therapeutic from Products of Conception, Via Natural or Artificial Opening (ICD-10-PCS; 2020-10-17)
PROC: 3E033VJ Introduction of Other Hormone into Peripheral Vein, Percutaneous Approach (ICD-10-PCS; 2020-10-17)
PROC: 3E0R3BZ Introduction of Anesthetic Agent into Spinal Canal, Percutaneous Approach (ICD-10-PCS; 2020-10-17)
PROC: 00HU33Z Insertion of Infusion Device into Spinal Canal, Percutaneous Approach (ICD-10-PCS; 2020-10-17)
DX: O26.62 Liver and biliary tract disorders in childbirth (principal); K83.1 Obstruction of bile duct; O60.14X0 Preterm labor third trimester with preterm delivery third trimester, not applicable or unspecified; O99.284 Endocrine, nutritional and metabolic diseases complicating childbirth; E03.9 Hypothyroidism, unspecified; O99.214 Obesity complicating childbirth; Z20.822 Contact with and (suspected) exposure to COVID-19; Z37.0 Single live birth; Z3A.36 36 weeks gestation of pregnancy; Z79.899 Other long term (current) drug therapy; O71.82 Other specified trauma to perineum and vulva
CPT/HCPCS: 01967; 36415; 51702; 59025; 59409; 85025; 86592; 86850; 86900; 86901; A9270-GY; J2590; J3010; J7120; U0002

== ENCOUNTER 2022-02-16 13:30 | Emergency (ER) | payer BC | END 2022-02-16 18:17 | disposition home or self-care (01) | LOC: JD.ED 13:30 | DX: O99.891 Other specified diseases and conditions complicating pregnancy (principal); R10.2 Pelvic and perineal pain; O99.281 Endocrine, nutritional and metabolic diseases complicating pregnancy, first trimester; E03.9 Hypothyroidism, unspecified; O99.211 Obesity complicating pregnancy, first trimester; E66.9 Obesity, unspecified; Z79.899 Other long term (current) drug therapy; Z3A.13 13 weeks gestation of pregnancy | CPT/HCPCS: 36415; 76817; 76817-26; 80053; 81001; 84702; 85025; 99284 ==

== ENCOUNTER 2025-02-24 12:13 | Emergency (ER) | payer BC | END 2025-02-24 15:18 | disposition home or self-care (01) | LOC: JD.ED 12:13 | DX: S09.90XA Unspecified injury of head, initial encounter (principal); M54.2 Cervicalgia; E66.9 Obesity, unspecified; Z68.34 Body mass index [BMI] 34.0-34.9, adult; Z90.49 Acquired absence of other specified parts of digestive tract; W00.0XXA Fall on same level due to ice and snow, initial encounter | CPT/HCPCS: 70450; 70450-26; 72125; 72125-26; 99283 ==